=== PATIENT | female | born 1940 | race Caucasian/White ===

== ENCOUNTER 2016-04-10 10:45 | Day surgery (SDC) | payer OTHER, BC ==
[~2016-04-10 10:45] MED LIST: ceFAZolin 2 GM/DEXTROSE 100 ML IV ONE
[2016-04-10] MEDS ORDERED: LIDOCAINE 1% 5 ML SDV ONE (11:14)
[2016-04-10] MEDS ORDERED: CEFAZOLIN 2 GM/DEXTROSE/100 ML BAG IV ONE (11:14)
[2016-04-10] MEDS ORDERED: LR 1,000 ML IV ONE (11:21)
[2016-04-10] MEDS ORDERED: BACITRACIN 50,000 UNITS/10 ML SYR IRR ONE (11:33)
[2016-04-10] MEDS ORDERED: BUPIVACAINE 0.25% 30 ML SDV ONE (11:33)
[2016-04-10] MEDS ORDERED: BUPIVACAINE/EPI 0.25% 30 ML SDV ONE (11:33)
[2016-04-10] MEDS ORDERED: PROPOFOL/EMULSION 500 MG/50 ML BOTTLE IV ONE (11:43)
[2016-04-10] MEDS ORDERED: fentaNYL 100 MCG/2 ML INJ ONE (11:43)
[2016-04-10] MEDS ORDERED: MIDAZOLAM 2 MG/2 ML VIAL ONE (11:53)
--- NOTE | 2016-04-12 20:21 | GOP ---
[f rep st] OPERATIVE REPORT DATE OF OPERATION: 04/10/2016 SURGEON: Huey Rascon DPM DEPUTY CONTROLLER: None. ANESTHESIA: Local with MAC. ANESTHESIOLOGIST: Robin Shaw MD. PREOPERATIVE DIAGNOSIS: 1. Plantar plate tear, right 2nd digit. 2. Metatarsalgia, right 2nd. POSTOPERATIVE DIAGNOSIS: 1. Plantar plate tear, right 2nd digit. 2. Metatarsalgia, right 2nd. PROCEDURE PERFORMED: 1. 2nd metatarsal osteotomy, right. 2. Repair of plantar plate, right 2nd metatarsophalangeal joint. FINDINGS: ESTIMATED BLOOD LOSS: Minimal. DESCRIPTION OF PROCEDURE: The patient presented to [facility] and was cleared for the intended procedure. The patient was taken to the operating and placed on the table in the supine pos ition. IV sedation was started per the Anesthesia Department. The foot was anesthetized in an infil trative nerve block fashion. The foot was prepped, scrubbed, and draped in the usual sterile fashion . Following exsanguination by elevation and an Esmarch bandage, a pneumatic ankle tourniquet was inf lated to 225 mmHg. At this time, attention was directed to the dorsal aspect of the right 2nd metata rsophalangeal joint where a lazy-S incision was made starting proximal at the 2nd intermetatarsal spa ce, curving gently over the metatarsophalangeal joint and ending just proximal to the proximal interp halangeal joint of the 2nd digit. This incision was carried deep utilizing sharp and blunt dissectio n, making sure that all neurovascular structures were identified and retracted. At this time, all mcarthur perficial bleeders were cauterized. The incision was carried down deep to the level of the joint cap vamsi. At this time, a linear capsulotomy was performed. The capsular tissues were dissected free me dially and laterally to allow for adequate exposure to the metatarsal head and base of the proximal p halanx. At this time, utilizing a sagittal saw, an osteotomy was performed on the 2nd metatarsal sta rting dorsal distal just proximal to the cartilaginous cap and running in a proximal plantar position . Upon completion of this, the head was transposed proximally as far as possible and temporarily pin evelyn with K-wire fixation. Another K-wire was then put in the dorsal to plantar position in the base of the proximal phalanx. The retractor was placed over the 2 pins, and visualization of the ruptured plantar plate was identified. Complete rupture from the base of the proximal phalanx was identified with some linear tearing also involved. It was decided repair of the plantar plate would be necessa ry. At this point, the linear tear was sewn back together utilizing 3-0 Vicryl. The Mini Scorpion w as then utilized to tag both the dorsal medial and dorsal lateral aspects of the torn plantar plate. The base of the proximal phalanx was then roughed up to bleeding bone with a bone rasp, and the area was flushed with copious amounts of sterile saline. At this point, 2 drill holes were performed in the base of the proximal phalanx in an X fashion. The suture passers were placed through the drill h oles, and the sutures were then pulled to the dorsal aspect of the base of the proximal phalanx. Upo n completion of this, the K-wire fixation retractions were relieved and removed. The area was again flushed with copious amounts of sterile saline before the head was moved back slightly distal and hel d temporarily with K-wire fixation. C-arm fluoroscopy at this time showed that there was some shorte marco of the metatarsal head, still longer than the 3rd, and equal to the 1st, realigning a more maryjane l metatarsal parabola. At this point, the head of the metatarsal was fixated with Arthrex 2.0 snap-o ff screws; 11 and 13 mm screws were placed across the osteotomy, and good compression was obtained. The K-wire was again removed. Upon completion of this, the toe was put into a 10-degree plantar flex ed position, and the dorsal sutures were tied on the base of the proximal phalanx. They were cut michelle ropriately, and C-arm fluoroscopy showed an excellent alignment to the metatarsophalangeal joint. At this point, the area was again flushed with copious amounts of sterile saline before the dorsal caps ule was closed with 2-0 and 3-0 Vicryl, followed by subcutaneous closure with 5-0 Vicryl and skin ana paula sure with 5-0 nylon. The area was dressed with Betadine-soaked Adaptics, 4x4s, Julio C, and Coban. Th e patient was taken to recovery room. Vital signs stable. Vascular supply intact to digits 1 throug h 5 bilaterally after the pneumatic ankle tourniquet had been released for a total tourniquet time of 48 minutes. PATHOLOGY: None. HEMOSTASIS: PAT at 225 mmHg by 48 minutes. MATERIALS: Arthrex 2.0 snap-off screws by 11 and 13 mm. INJECTABLES: 20 cc, 9:1 ratio, of 0.25% Marcaine plain and 0.25% Marcaine with epi preoperatively. COMPLICATIONS: None. /[id number]/MODL
== END 2016-04-10 15:20 | disposition home or self-care (01) ==
LOC: FSGY 10:45
PROVIDERS: ATTEND Podiatrist Primary Podiatric Medicine
PROC: 0QSN04Z Reposition Right Metatarsal with Internal Fixation Device, Open Approach (ICD-10-PCS; principal; 2016-04-10 12:15)
PROC: 0LQV0ZZ Repair Right Foot Tendon, Open Approach (ICD-10-PCS; principal; 2016-04-10 12:15)
DX: M66.371 Spontaneous rupture of flexor tendons, right ankle and foot (principal); M77.41 Metatarsalgia, right foot; I10 Essential (primary) hypertension; J45.909 Unspecified asthma, uncomplicated; N18.9 Chronic kidney disease, unspecified
CPT/HCPCS: 28200; 28308; C1769; C1713; J0690; J2250; J2704; J3010

== ENCOUNTER 2016-05-06 20:06 | Emergency (ER) | payer OTHER, BC ==
--- NOTE | 2016-05-06 21:00 | EDPHY ---
H & P Stated Complaint: Left leg pain Source: Patient Exam Limitations: No limitations - Medical/Surgical History Hx Asthma: Yes Hx Chronic Respiratory Disease: No Hx Diabetes: No Hx Cardiac Disease: No Hx Renal Disease: No Hx Cirrhosis: No Hx Alcoholism: No Hx HIV/AIDS: No Hx Splenectomy or Spleen Trauma: No Other PMH: Asthma, R Hip replacement, HTN, - Social History Smoking Status: Never smoked Time Seen by Provider: 05/06/16 20:36 HPI/ROS: CHIEF COMPLAINT: left leg pain HISTORY OF PRESENT ILLNESS: 75-year-old female presents to the emergency department complaining of left posterior leg pain behind her knee and just above her knee. Patient had tarsal plate surgery on her right foot 20 days ago at this hospital. She has had no complications since surgery. Patient denies chest pain or shortness of breath. Patient reports she has had pain behind this knee for 8 or 9 months that is intermittent though today she went to step up on her neighbor's step and had a sharp pain behind this knee and felt like it was going to get out. She denies numbness or tingling in this leg, no swelling, no previous injury to this leg. REVIEW OF SYSTEMS: A comprehensive 10 point review of systems is otherwise negative aside from elements mentioned in the history of present illness. (Meryl Toney) - Physical Exam Exam: GEN: Awake, alert, oriented, no acute distress RESP: nl resp effort, lungs clear to auscultation, normal heart tones MSK: Left knee with full flexion and extension, no swelling, fullness in popliteal fossa, tenderness just proximal to this, no calf swelling or tenderness, no ankle tenderness or swelling, 2+ pedal pulses, sensation intact to light touch, no medial or lateral joint line tenderness SKIN: No break in skin (Meryl Toney) Constitutional: Initial Vital Signs Temperature (C) 36.7 C 05/06/16 21:02 Heart Rate 91 05/06/16 21:02 Respiratory Rate 16 05/06/16 21:02 Blood Pressure 102/64 05/06/16 21:02 O2 Sat (%) 95 05/06/16 21:02 O2 Delivery Mode Room Air Allergies/Adverse Reactions: ENVIRONMENTAL Allergy (Mild, Uncoded 05/06/16 21:00) Other-Enter Comments Home Medications: Medication Instructions Recorded Albuterol [Proventil Inhaler HFA 1 - 2 puffs IH Q4H PRN 09/19/13 (*)] Allopurinol [Allopurinol 300 MG 300 mg PO DAILY 09/19/13 (RX)] Calcium Carb W/Vit D [Calcium Carb 500 mg PO TIDMEAL 09/19/13 W/Vit D 500/200 (*)] Cholecalciferol Vit D3 [Vitamin D3 2,000 units PO DAILY 09/19/13 (*)] Fluticasone Hfa 110 Mcg [Flovent 1 puffs IH BID 09/19/13 110 MCG Hfa MDI (*)] Gabapentin [Neurontin 300 MG (*)] 1,200 mg PO HS 09/19/13 Herbals/Supplements -Info Only 1 ea PO DAILY 09/19/13 Losartan Potassium [Cozaar 50 mg 50 mg PO DAILY 09/19/13 (*)] Montelukast Sodium [Singulair 10 10 mg PO DAILY@1800 09/19/13 mg (*)] Sertraline HCl [Zoloft 50mg (*)] 50 mg PO HS 09/19/13 Spironolact/Hydrochlorothiazid 1 each PO DAILY 09/19/13 [Spironolactone-Hctz 25-25 Tab] Zolpidem Tartrate [Ambien 5MG (*)] 10 mg PO HS 09/19/13 amLODIPine BESYLATE [Norvasc 2.5 2.5 mg PO DAILY 09/19/13 mg (*)] lamoTRIgine [LamICTAL 100 MG (*)] 100 mg PO DAILY 09/19/13 Aspirin [Aspirin 325 mg (*)] 325 mg PO DAILY #21 tab 10/06/13 HYDROcodone/APAP 10/325 [Turlock 1 tab PO Q3 PRN #0 tab 10/07/13 10/325 (*)] Medical Decision Making - Diagnostics Imaging: LLE US- Findings: The common femoral, femoral, popliteal, greater saphenous and posterior tibial and peroneal veins of the calf normally compress on grayscale imaging. The deep venous system and superficial veins of the proximal calf have normal flow and expected variability. No Hickman's cyst. Impression: Negative. No deep venous thrombosis. Comment: Results called to Meryl Toney NP at 1032 p.m. May 06, 2016. Dictated By: Michael Lewis MD (Meryl Toney) ED Course/Re-evaluation: 75-year-old female presents with posterior left knee pain for several months that was significantly worse today after taking a step. Patient had a right foot surgery 3 weeks ago. No chest pain or shortness of breath. Ultrasound obtained to rule out a DVT, this was negative. Patient was placed in a knee brace and knee immobilizer, she has no evidence of a septic joint with no redness, swelling, fevers. She is to follow up with her orthopedist for further imaging and evaluation. She is given return precautions for worsening symptoms, other questions or concerns. (Meryl Toney) Differential Diagnosis: Diagnosis considered but not limited to DVT, Hickman's cyst, muscle strain, knee sprain, ligamentous injury, septic joint. (Meryl Toney) Other Provider: The patient wasevaluatedand managed by themidlevel provider. Idiscussed the patient's presentation and course with thephysicianassistantor nurse practitionerand agree with theevaluation. My co-signature indicates that I have reviewed this chart and I agree with the findings and plan of care as documented. I am the secondary supervisingphysician. (Franca Aguirre) Departure - Departure Disposition: Home, Routine, Self-Care Clinical Impression: Sprain of left knee Condition: Good Instructions: Knee Sprain (ED) Additional Instructions: Rest, ice, elevate, take 650 mg of Tylenol every 8 hours as needed for pain, wear Hank wrap and knee immobilizer for comfort. Follow up with Dr. Galvan at first available appointment. Return to the emergency department for worsening symptoms, pain that is not controlled, fevers, any other questions or concerns. Referrals: Leonard Galvan MD [Medical Doctor] - As per Instructions
--- NOTE | 2016-05-06 22:33 | US ---
Left Lower Extremity Deep Venous Duplex Ultrasound Indication: Posterior knee pain. Technique: The lower extremity deep venous system and veins of the proximal calf were interrogated wi th grayscale, color, and spectral Doppler imaging. Findings: The common femoral, femoral, popliteal, greater saphenous and posterior tibial and peroneal veins of the calf normally compress on grayscale imaging. The deep venous system and superficial vei ns of the proximal calf have normal flow and expected variability. No Hickman's cyst. Impression: Negative. No deep venous thrombosis. Comment: Results called to Meryl Toney NP at 1032 p.m. May 06, 2016.
[2016-05-06 23:29] VITALS: BP 110/78; PULSE 74; RESP 14; TEMP 98.4; O2SAT 96
== END 2016-05-06 23:29 | disposition home or self-care (01) ==
DX: S83.92XA Sprain of unspecified site of left knee, initial encounter (principal); J45.909 Unspecified asthma, uncomplicated; I10 Essential (primary) hypertension; Z79.82 Long term (current) use of aspirin; X58.XXXA Exposure to other specified factors, initial encounter; Y93.89 Activity, other specified

== ENCOUNTER → 2016-05-18 | Outpatient (CLI) | payer OTHER, BC ==
--- NOTE | 2016-05-18 15:40 | MR ---
MRI of the Left Knee Clinical Indications: Knee pain and swelling. Technique: Fat-suppressed, fast T2-weighted images were acquired axially, sagittally, and coronally. T1-weighted sagittal images were obtained. Findings Medial compartment: Complex tear involves the posterior horn of the medial meniscus. At the midaspect posterior horn, there is a near full thickness cleavage injury with associated small free edge flap. This injury extends into the posterior horn toward the posterior root ligament in a horizontal longi tudinal fashion. The posterior root ligament is intact. The tear also extends to the posteromedial co rner along the undersurface. The anterior horn and body of the medial meniscus are intact. Medial com partment articular cartilage is minimally thinned along the weightbearing aspect of the medial femora l condyle. Lateral compartment: Meniscus and articular cartilage are intact. Patellofemoral compartment: Diffuse grade 2 chondral loss throughout the medial and lateral patellar facets. Anterior and posterior cruciate ligaments are intact. Medial and lateral collateral ligaments are int act. Distal quadriceps and patellar tendons are intact. There is a large left knee joint effusion without Hickman's cyst. Impression: 1. Complex tear posterior horn medial meniscus, as above. 2. Associated knee joint effusion. 3. Underlying chondromalacia patella. 4. Intact ligaments.
== END ==
LOC: FIMAGING 13:16
PROVIDERS: ATTEND Orthopaedic Surgery
DX: S83.242A Other tear of medial meniscus, current injury, left knee, initial encounter (principal); M25.462 Effusion, left knee; M22.42 Chondromalacia patellae, left knee

== ENCOUNTER 2016-06-11 05:57 | Day surgery (SDC) | payer OTHER, BC ==
[2016-06-11] MEDS ORDERED: ACETAMINOPHEN 325 MG TAB PO ONE (06:00)
[2016-06-11] MEDS ORDERED: CEFAZOLIN 2 GM/DEXTR 100 ML IV ONE (06:00)
[2016-06-11] MEDS ORDERED: CHLORHEXIDINE GLUC HIBICLENS 118 ML BTL TP ONE (06:00)
[2016-06-11] MEDS ORDERED: DEXAMETHASONE 4 MG/ML VIAL IVP ONE (06:00)
[2016-06-11] MEDS ORDERED: FAMOTIDINE 20 MG TAB PO ONE (06:00)
[2016-06-11] MEDS ORDERED: LIDOCAINE 1% 2 ML INJ ONE (06:30)
[2016-06-11] MEDS ORDERED: BUPIVACAINE/EPI 0.5% 30 ML SDV ONE (06:37)
[2016-06-11] MEDS ORDERED: fentaNYL 100 MCG/2 ML INJ ONE ×2 (06:53→08:36)
[2016-06-11] MEDS ORDERED: PROPOFOL/EMULSION 500 MG/50 ML BOTTLE IV ONE (06:53)
[2016-06-11] MEDS ORDERED: SCOPOLAMINE HYDROBROMIDE 1.5 MG PATCH TD ONE ×2 (06:58→07:30)
[2016-06-11] MEDS ORDERED: MIDAZOLAM 2 MG/2 ML VIAL ONE (06:58)
[2016-06-11] MEDS ORDERED: ONDANSETRON 4 MG/2 ML VIAL ONE (07:39)
[2016-06-11] MEDS ORDERED: PHENYLEPHRINE HCL 100 MCG/ML SYR ONE (07:39)
--- NOTE | 2016-06-11 21:46 | GOP ---
[f rep st] OPERATIVE REPORT DATE OF OPERATION: 06/11/2016 SURGEON: Iglesia Galvan MD CLINIC BUSINESS MANAGER: None. ANESTHESIA: General. PREOPERATIVE DIAGNOSIS: Left knee medial meniscus tear. POSTOPERATIVE DIAGNOSIS: Left knee medial meniscus tear and lateral meniscus tear. PROCEDURE PERFORMED: Left arthroscopic partial medial and lateral meniscectomy. FINDINGS: INDICATIONS: The patient is a 76-year-old female who sustained an acute injury to her left knee, sustaining a left medial meniscus tear on MRI. Risks and benefits were discussed with the patient for nonoperative and operative intervention, and the decision was made to proceed with operative intervention. No guarantees were given. DESCRIPTION OF PROCEDURE: The patient was identified in the preoperative holding area and her left lower extremity was marked. She was then brought back to the operating room. After induction of anesthesia, a non-sterile tourniquet was placed on the left upper thigh. She was then prepped and draped in the usual sterile fashion. A time-out was taken confirming patient, laterality, procedure, allergies, and antibiotic status. We proceeded to elevate the extremity. The tourniquet was inflated to 250 mmHg. It was up for a total of 18 minutes. Medial and lateral parapatellar portals were made. Diagnostic arthroscopy was performed. There were no loose bodies in the patellar pouch, medial gutter or lateral gutter. There were grade 1 to 2 chondral changes on the patella. The trochlea appeared in good condition. The medial femoral condyle had some grade 2 to 3 changes on the medial femoral condyle. There was a broad tear of the meniscus at the posterior meniscal root as well as on the posterior medial periphery. These were debrided back to a stable rim with marcelo. The ACL was found to be intact. The lateral compartment was examined. There was some fraying and tears about the lateral meniscus. These were cleaned up with a shaver as well. After removal of any excess fluid, the incisions were closed with a suture. The patient was placed in a sterile dressing and brought to the PACU in good condition with her leg well perfused. Prior to making incision, local anesthetic was applied into the injection portal sites. /[id number]/MODL MTDD
== END 2016-06-11 09:50 | disposition home or self-care (01) ==
LOC: F3N 05:57 → UNDOADMIN 05:57 → FSGY 05:57 → EDSTATUS 12:15
PROVIDERS: ATTEND Orthopaedic Surgery
PROC: 0SBD4ZZ Excision of Left Knee Joint, Percutaneous Endoscopic Approach (ICD-10-PCS; principal; 2016-06-11 07:15)
DX: S83.242A Other tear of medial meniscus, current injury, left knee, initial encounter (principal); S83.282A Other tear of lateral meniscus, current injury, left knee, initial encounter; I10 Essential (primary) hypertension; M10.9 Gout, unspecified; J45.909 Unspecified asthma, uncomplicated; X58.XXXA Exposure to other specified factors, initial encounter; Y92.9 Unspecified place or not applicable
CPT/HCPCS: J0171; J0690; J1100; J2250; J2370; J2405; J2704; J3010

== ENCOUNTER → 2017-02-14 | Outpatient (CLI) | payer OTHER, BC | LOC: FIMAGING 08:35 | PROVIDERS: ATTEND Physical Medicine & Rehabilitation | DX: T84.84XA Pain due to internal orthopedic prosthetic devices, implants and grafts, initial encounter (principal); D25.9 Leiomyoma of uterus, unspecified ==

== ENCOUNTER → 2017-07-31 | Outpatient (CLI) | payer OTHER, BC | LOC: GIMAGING 14:53 | PROVIDERS: ATTEND Registered Nurse | DX: R05 Cough (principal); J45.909 Unspecified asthma, uncomplicated | CPT/HCPCS: 71046-PO ==

== ENCOUNTER → 2017-09-10 | Outpatient (CLI) | payer OTHER, BC | LOC: FIMAGING 18:29 | PROVIDERS: ATTEND Nurse Practitioner | DX: M46.96 Unspecified inflammatory spondylopathy, lumbar region (principal); M53.2X6 Spinal instabilities, lumbar region; M53.2X7 Spinal instabilities, lumbosacral region; Z96.641 Presence of right artificial hip joint ==

== ENCOUNTER 2017-10-25 13:21 | Emergency (ER) | payer OTHER, BC ==
[2017-10-25] MEDS ORDERED: NS 1,000 ML IV ONE (14:14)
--- NOTE | 2017-10-25 14:29 | EDPHY ---
H & P Stated Complaint: Dysuria; "I think I'm dehydrated"; seen here 2 days ago for abd c/o - Personal History Current Tetanus Diphtheria and Acellular Pertussis (TDAP): Yes - Medical/Surgical History Hx Asthma: Yes Hx Chronic Respiratory Disease: No Hx Diabetes: No Hx Cardiac Disease: No Hx Renal Disease: No Hx Cirrhosis: No Hx Alcoholism: No Hx HIV/AIDS: No Hx Splenectomy or Spleen Trauma: No Other PMH: Asthma, R Hip replacement, HTN, diverticulitis - Social History Smoking Status: Never smoked Time Seen by Provider: 10/25/17 14:07 HPI/ROS: CHIEF COMPLAINT: Dysuria, diarrhea HISTORY OF PRESENT ILLNESS: 77-year-old female presents with dysuria and diarrhea. Onset of nausea, vomiting and diarrhea 3 days ago. She was seen in this emergency department; CT scan of the abdomen pelvis showed fluid in the colon, consistent with enteritis, no evidence of diverticulitis. Since then, the vomiting has resolved. She continues to have nausea and multiple episodes of diarrhea daily. Onset of dysuria yesterday, associated with urinary incontinence and hematuria this morning. No abdominal pain today and no fever. REVIEW OF SYSTEMS: complete 10 point ROS negative except at noted in the HPI (Lupe Rodríguez) - Social History Additional Social History: (Lupe Rodríguez) - Physical Exam Exam: General Appearance: Alert, pleasant Eyes: Pupils equal and round, no conjunctival pallor or injection ENT, Mouth: Mucous membranes slightly dry Neck: Normal inspection Respiratory: Lungs are clear to auscultation Cardiovascular: Regular rate and rhythm Gastrointestinal: Abdomen is soft, diffuse mild tenderness Neurological: A&O, nonfocal, normal gait Skin: Warm and dry Extremities: Normal inspection Psychiatric: Mood and affect normal (Lupe Rodríguez) Constitutional: Initial Vital Signs Temperature (C) 36.6 C 10/25/17 13:24 Heart Rate 91 10/25/17 13:24 Respiratory Rate 18 10/25/17 13:24 Blood Pressure 139/74 H 10/25/17 13:24 O2 Sat (%) 96 10/25/17 13:24 O2 Delivery Mode Room Air Allergies/Adverse Reactions: ENVIRONMENTAL Allergy (Mild, Uncoded 10/23/17 14:30) Other-Enter Comments Home Medications: Medication Instructions Recorded Albuterol [Proventil Inhaler HFA 1 - 2 puffs IH Q4H PRN 09/19/13 (*)] Allopurinol [Allopurinol 300 MG 300 mg PO DAILY 05/27/16 (RX)] Gabapentin [Neurontin 300 MG (*)] 900 mg PO HS 05/27/16 Montelukast Sodium [Singulair 10 10 mg PO HS 05/27/16 mg (*)] Sertraline HCl [Zoloft 100mg (*)] 100 mg PO DAILY 05/27/16 Zolpidem Tartrate [Ambien 5MG (*)] 5 mg PO HS 05/27/16 amLODIPine BESYLATE [Norvasc 2.5 2.5 mg PO DAILY 05/27/16 mg (*)] lamoTRIgine [Lamictal] 200 mg PO DAILY 05/27/16 Acetaminophen [Tylenol 325mg (*)] 325 mg PO DAILY PRN 10/16/17 Fluticasone Hfa 110 Mcg [Flovent 1 puffs IH BID PRN 10/16/17 110 MCG Hfa MDI (*)] Multivitamins [Multivitamin (*)] 1 each PO DAILY 10/16/17 clonazePAM [Klonopin (*)] 0.5 mg PO DAILY PRN 10/16/17 Losartan-Hctz 100-12.5 mg Tab 10/23/17 Cephalexin [Keflex] 500 mg PO BID #14 cap 10/25/17 Ondansetron Odt [Zofran Odt 4 mg 4 mg PO Q4 PRN #10 tab 10/25/17 (RX)] Medical Decision Making ED Course/Re-evaluation: This patient presents with new onset of dysuria in the past 24 hr, likely urinary tract infection. Urinalysis sent. She also has vomiting and diarrhea, consistent with gastroenteritis. She will attempt to give us a stool sample. Abdominal exam is benign and there is no indication for imaging today. IV normal saline 1 L given for dehydration. (Lupe Rodríguez) Differential Diagnosis: Differential diagnosis includes though it is not limited to appendicitis, cholecystitis, diverticulitis, pyelonephritis, bowel perforation, small bowel obstruction. (Lupe Rodríguez) Other Provider: I assumed care of this patient from Dr. Rodríguez at 3:00 p.m.. At that time we were awaiting blood work and urinalysis. I reviewed her lab work. I have also reviewed the urinalysis, which is suggestive of urinary tract infection. Urine has been sent for culture. The patient remained in the emergency department, under my care, for 4 more hours. During that time she urinated 2 more times. She was given IV ceftriaxone 1 g for treatment of UTI. She received 2 L of IV fluid. She did not have any diarrheal stool. She has been taking loperamide at home. She was able to take p.o. She and her family are comfortable returning home. Her vital signs were normal at 6:30 p.m. When I recheck to them. She remained afebrile during her stay in the department. She does have a leukocytosis, not unexpected in the setting of a gastroenteritis and now urinary tract infection. No systemic toxicity. I have advised the patient and her that if she has return of diarrhea at home, fever, pain, any new or concerning symptoms--they should return to the emergency department and expect to be hospitalized. (Mackenzie Layton) - Data Points Laboratory Results: Laboratory Results 10/25/17 14:45 10/25/17 14:45 Microbiology Results: MICROBIOLOGY 10/25/17 14:50 Urine,Clean Catch Urine Culture - Preliminary Gram Neg Rods 2 Or More Types 10/26/17 17:55 Stool Gastrointestinal Tract Panel (PCR) - Final No Organism Detected Medications Given: Discontinued Medications Sodium Chloride (Ns) 1,000 mls @ 0 mls/hr IV EDNOW ONE; Wide Open PRN Reason: Protocol Stop: 10/25/17 14:15 Last Admin: 10/25/17 14:41 Dose: 1,000 mls Ceftriaxone Sodium/Dextrose (Rocephin 1 Gm (Premix)) 50 mls @ 100 mls/hr IV EDNOW ONE PRN Reason: Protocol Stop: 10/25/17 19:03 Last Admin: 10/25/17 18:47 Dose: 50 mls Ondansetron HCl (Zofran) 4 mg IVP EDNOW ONE Stop: 10/25/17 14:31 Last Admin: 10/25/17 14:45 Dose: 4 mg Point of Care Test Results: Urine Dip Collection Date 10/25/17 Collection Time 16:00 Specific Leland (1.002-1.030) 1.015 PH (5.0-7.5) 6.5 Leukocytes (Negative) 2+ Nitrites (Negative) Positive Protein (Negative) 1+ Glucose (Negative) Negative Ketones (Negative) Trace Bilirubin (Negative) Negative Blood (Negative) 1+ Departure - Departure Disposition: Home, Routine, Self-Care Clinical Impression: Urinary tract infection Qualifiers: Urinary tract infection type: acute cystitis Hematuria presence: without hematuria Qualified Code(s): N30.00 - Acute cystitis without hematuria Diarrhea Qualifiers: Diarrhea type: unspecified type Qualified Code(s): R19.7 - Diarrhea, unspecified Condition: Good Instructions: Ondansetron (By mouth), Urinary Tract Infection in Women (ED) Additional Instructions: You received intravenous antibiotics for your urine infection tonight. You do not need any additional antibiotics until tomorrow. I am providing prescription for Keflex that you should fill tomorrow morning. Your urine is being cultured, these results will not be available for a couple of days at least. If you have fever, pain, more diarrhea, vomiting, any new or concerning symptoms you should return to the emergency department. You would likely be hospitalized at that time. Referrals: Tiana Benítez MD [Primary Care Provider] - As per Instructions Prescriptions: Cephalexin [Keflex] 500 mg PO BID #14 cap Ondansetron Odt [Zofran Odt 4 mg (RX)] 4 mg PO Q4 PRN #10 tab PRN Reason: nausea
[2017-10-25] MEDS ORDERED: ONDANSETRON 4 MG/2 ML VIAL IVP ONE (14:30)
[2017-10-25 14:53] LABS: PLATELET COUNT 321 10^3/uL (150-400)
[2017-10-25 19:17] VITALS: BP 118/80
== END 2017-10-25 19:17 | disposition home or self-care (01) ==
DX: N30.00 Acute cystitis without hematuria (principal); B96.89 Other specified bacterial agents as the cause of diseases classified elsewhere; R19.7 Diarrhea, unspecified; I10 Essential (primary) hypertension; J45.909 Unspecified asthma, uncomplicated; E86.9 Volume depletion, unspecified
CPT/HCPCS: 96361; 96365; 96375; 99284; J0696; J2405

== ENCOUNTER 2017-11-04 09:04 | Inpatient (IN) | payer OTHER, BC ==
--- NOTE | 2017-11-04 07:08 | PDHPUP ---
History & Physical Update H&P update statement: This history and physical update is based on an assessment of the patient which was completed after admission or registration (within 24 hours), but prior to the surgery/procedure. H&P update: H&P reviewed & patient examined, no change in patient's condition since H&P completed
[~2017-11-04 09:04] MED LIST changes: +ROPIVACAINE 0.2% 80 MG, EPINEPHrine 0.2 MG, KETOROLAC TROMETHAMINE 30 MG in SYRINGE 0 ML IU ONE; +TRANEXAMIC ACID 3,000 MG in NS (SYRINGE) 50 ML IRR ONE; -ceFAZolin 2 GM/DEXTROSE 100 ML IV ONE
[2017-11-04] MEDS ORDERED: FAMOTIDINE 20 MG TAB PO ONE (09:32)
[2017-11-04] MEDS ORDERED: LIDOCAINE 1% 2 ML INJ ID PRN (09:32)
[2017-11-04] MEDS ORDERED: LR 1,000 ML IV ONE (09:32)
[2017-11-04] MEDS ORDERED: DEXAMETHASONE 4 MG/ML VIAL IVP ONE (09:32)
[2017-11-04] MEDS ORDERED: ceFAZolin 2 GM/DEXTROSE 100 ML IV ONE (09:32)
[2017-11-04] MEDS ORDERED: ACETAMINOPHEN 325 MG TAB PO ONE (09:32)
[2017-11-04] MEDS ORDERED: TRANEXAMIC ACID 3,000 MG/50 ML BAG IRR ONE (09:39)
--- NOTE | 2017-11-04 10:20 | PDANEPAE ---
ANE History of Present Illness OA here for MAT ANE Past Medical History - Cardiovascular History Hx Hypertension: Yes Hx Arrhythmias: No Hx Chest Pain: No Hx Coronary Artery / Peripheral Vascular Disease: No Hx CHF / Valvular Disease: No Hx Palpitations: No Cardiovascular History Comment: PRIMARY MANAGES HTN MEDS - Pulmonary History Hx COPD: No Hx Asthma/Reactive Airway Disease: Yes Hx Recent Upper Respiratory Infection: No Hx Oxygen in Use at Home: No Hx Sleep Apnea: Yes Sleep Apnea Screening Result - Last Documented: Positive Pulmonary History Comment: DANIA POSITIVE DOESN'T USE CPAP. ASTHMA - Neurologic History Hx Cerebrovascular Accident: No Hx Seizures: No Hx Dementia: No Neurologic History Comment: HX OF SPINAL FUSION. BENIGN FAMILIAL TREMOR- HAS NOT SEEN NEUROLOGIST FOR THIS - Endocrine History Hx Diabetes: No - Renal History Hx Renal Disorders: Yes Renal History Comment: MILD RENAL INSUFFICIENCY CONTROLLED CREATININE USUALLY AT 1.2- SEES DR FONTANA YEARLY TO MONITOR - Liver History Hx Hepatic Disorders: No - Neurological & Psychiatric Hx Hx Neurological and Psychiatric Disorders: Yes Neurological / Psychiatric History Comment: DEPRESSION SEES DR PETERSON- ON ZOLOFT AND LAMICTAL - Cancer History Hx Cancer: Yes Cancer History Comment: BASAL CELL SKIN - Congenital Disorder History Hx Congenital Disorders: No - GI History Hx Gastrointestinal Disorders: Yes Gastrointestinal History Comment: DIVERTICULITIS HX - Other Health History Other Health History: NONE - Chronic Pain History Chronic Pain: Yes (ARTHRITIS) - Surgical History Prior Surgeries: 04/10/16 RIGHT PLANTAR PLATE REPAIR WITH TORITO. CHANEL AT 5 YEARS OLD. TONSILLECTOMY AT 7 YEARS OLD. TUBAL LIGATION 35 YEARS AGO. BUNIONECTOMY RIGHT FOOT. CARPAL TUNNEL REPAIR ON LEFT HAND. 3 STAGE FUSION ON CERVICAL SPINE 3,4,5,6. TOTAL HIP R 2013 ANE Review of Systems Review of Systems: - Exercise capacity METS (RN): 4 METS ANE Patient History - Allergies Allergies/Adverse Reactions: ENVIRONMENTAL Allergy (Mild, Uncoded 10/23/17 14:30) Other-Enter Comments - Home Medications Home Medications: Albuterol [Proventil Inhaler HFA (*)] 1 - 2 puffs IH Q4H PRN 09/19/13 [Last Taken 11/04/17] Allopurinol [Allopurinol 300 MG (RX)] 300 mg PO DAILY 05/27/16 [Last Taken 2 Weeks Ago ~10/21/17] Gabapentin [Neurontin 300 MG (*)] 900 mg PO HS 05/27/16 [Last Taken 1 Day Ago ~ 11/03/17] Montelukast Sodium [Singulair 10 mg (*)] 10 mg PO HS 05/27/16 [Last Taken 1 Day Ago ~11/03/17] Sertraline HCl [Zoloft 100mg (*)] 100 mg PO DAILY 05/27/16 [Last Taken 11/04/17] Zolpidem Tartrate [Ambien 5MG (*)] 5 mg PO HS 05/27/16 [Last Taken 2 Days Ago ~ 11/02/17] amLODIPine BESYLATE [Norvasc 2.5 mg (*)] 2.5 mg PO DAILY 05/27/16 [Last Taken ] lamoTRIgine [Lamictal] 200 mg PO DAILY 05/27/16 [Last Taken 11/04/17] Acetaminophen [Tylenol 325mg (*)] 325 mg PO DAILY PRN 10/16/17 [Last Taken 1 Day Ago ~11/03/17] Fluticasone Hfa 110 Mcg [Flovent 110 MCG Hfa MDI (*)] 1 puffs IH BID PRN [Last Taken Unknown] Multivitamins [Multivitamin (*)] 1 each PO DAILY 10/16/17 [Last Taken 1 Day Ago ~11/03/17] clonazePAM [Klonopin (*)] 0.5 mg PO DAILY PRN 10/16/17 [Last Taken 1 Day Ago ~] Spironolact/Hydrochlorothiazid [Spironolactone-Hctz 25-25 Tab] 1 each PO DAILY 10/23/17 [Last Taken 1 Day Ago ~11/03/17] Losartan Potassium 11/04/17 [Last Taken 11/04/17] - NPO status NPO Since - Liquids (Date): 11/03/17 NPO Since - Liquids (Time): 17:00 NPO Since - Solids (Date): 11/03/17 NPO Since - Solids (Time): 21:00 - Anes Hx Anes Hx: post operative nausea and vomiting - Smoking Hx Smoking Status: Never smoked - Alcohol Use Alcohol Use: None - Family Anes Hx Family Anes Hx: none Family Hx Anesthesia Complications: NONE ANE Labs/Vital Signs - Vital Signs Blood Pressure: 141/93 Heart Rate: 78 Respiratory Rate: 18 O2 Sat (%): 95 Height: 160.02 cm Weight: 71.668 kg ANE Physical Exam - Airway Neck exam: decreased ROM, spinal fusion Mallampati Score: Class 2 Mouth exam: normal dental/mouth exam - Pulmonary Pulmonary: no respiratory distress, clear to auscultation - Cardiovascular Cardiovascular: regular rate and rhythym, no murmur, rub, or gallop - ASA Status ASA Status: III ANE Anesthesia Plan Anesthesia Plan: GA with mask, spinal
[2017-11-04] MEDS ORDERED: MIDAZOLAM 2 MG/2 ML VIAL IVP ONE (10:22)
[2017-11-04] MEDS ORDERED: PROPOFOL/EMULSION 500 MG/50 ML BOTTLE IV ONE (10:30)
[2017-11-04] MEDS ORDERED: ONDANSETRON 4 MG/2 ML VIAL IVP PRN ×2 (12:10→12:13)
[2017-11-04] MEDS ORDERED: PROMETHAZINE HCL 25 MG/ML INJ IVP PRN (12:10)
[2017-11-04] MEDS ORDERED: PROMETHAZINE HCL 25 MG SUPPR PR PRN (12:10)
[2017-11-04] MEDS ORDERED: METOCLOPRAMIDE 10 MG/2 ML VIAL IVP PRN (12:10)
[2017-11-04] MEDS ORDERED: POLYETHYLENE GLYCOL 3350 17 GM PKT PO PRN (12:10)
[2017-11-04] MEDS ORDERED: TEMAZEPAM 15 MG CAP PO PRN (12:10)
[2017-11-04] MEDS ORDERED: LACTULOSE 20 GM/30 ML UDCUP PO PRN (12:10)
[2017-11-04] MEDS ORDERED: diphenhydrAMINE 25 MG CAP PO PRN (12:10)
[2017-11-04] MEDS ORDERED: MAGNESIUM HYDROXIDE 30 ML UDCUP PO PRN (12:10)
[2017-11-04] MEDS ORDERED: DIPHENOXYLATE/ATROPINE LOMOTIL 1 TAB PO PRN (12:10)
[2017-11-04] MEDS ORDERED: BISACODYL 10 MG SUPP PR PRN (12:10)
[2017-11-04] MEDS ORDERED: ONDANSETRON DISINTEGRATING 4 MG TAB PO PRN (12:10)
--- NOTE | 2017-11-04 12:10 | POSTOPPROG ---
Post Op Note Date of Operation: 11/04/17 Surgeon: Leonard Mcghee Professor Of Environmental Science: katerin mcghee Anesthesiologist: dr. walden Anesthesia: Spinal Pre-op Diagnosis: left hip OA Post-op Diagnosis: same Indication: left hip pain Procedure: L MAT hardware in good position and well fixed Findings: severe hipOA Inf/Abcess present in the surg proc area at time of surgery?: No EBL: 100-500
[2017-11-04] MEDS ORDERED: fentaNYL 100 MCG/2 ML INJ IVP PRN (12:13)
[2017-11-04] MEDS ORDERED: oxyCODONE IR 5 MG TAB PO PRN (12:13)
[2017-11-04] MEDS ORDERED: NALOXONE HCL 0.4 MG/ML INJ IVP PRN (12:13)
--- NOTE | 2017-11-04 12:15 | POSTANESTH ---
Post Anesthetic Evaluation Cardiovascular Status: Normal, Stable, Similar to Pre-Op Cond Respiratory Status: Normal, Stable, Similar to Pre-op Cond. Level of Consciousness/Mental Status: Can Participate in Eval, Alert and Oriented Pain Control: Adequate, Prn Tx Ordered Nausea/Vomiting Control: Adequate, Prn Tx Ordered Complications Possibly Related to Anesthesia: None Noted
[2017-11-04] MEDS ORDERED: LR 1,000 ML IV SCH (12:30)
--- NOTE | 2017-11-04 13:54 | PDMN ---
Medical Necessity Medical necessity: [facility] IP only surgery; cpt 62237 L MAT
[2017-11-04] MEDS: oxyCODONE IR 5 MG TAB PO PRN ×2 (16:10→21:34)
[2017-11-04] MEDS: CYCLOBENZAPRINE 10 MG TAB PO PRN ×2 (16:11→23:51)
[2017-11-04] MEDS: ACETAMINOPHEN 325 MG TAB PO SCH ×2 (17:57→23:51)
[2017-11-04] MEDS: ceFAZolin 2 GM/DEXTROSE 100 ML IV SCH (17:59)
[2017-11-04] MEDS ORDERED: clonazePAM 0.5 MG TAB PO PRN (19:20)
[2017-11-04] MEDS ORDERED: CETIRIZINE 10 MG TAB PO PRN (19:25)
[2017-11-04] MEDS ORDERED: FLUTICASONE HFA 110 MCG MDI IH PRN (19:32)
[2017-11-04] MEDS ORDERED: ALBUTEROL 60 PUFFS/8 GM MDI IH PRN (19:45)
[2017-11-04] MEDS ORDERED: GABAPENTIN 300 MG CAP PO SCH (21:00)
[2017-11-04] MEDS ORDERED: MONTELUKAST SODIUM 10 MG TAB PO SCH (21:00)
[2017-11-04] MEDS ORDERED: SERTRALINE HCL 100 MG TAB PO SCH (21:00)
[2017-11-04] MEDS ORDERED: ZOLPIDEM TARTRATE 5 MG TAB PO SCH (21:00)
[2017-11-04] MEDS: ASPIRIN 81 MG CHEWABLE TAB PO SCH (21:34)
[2017-11-04] MEDS: SENNOSIDES/DOCUSATE SODIUM TAB PO SCH (21:35)
[2017-11-04] MEDS: FAMOTIDINE 20 MG TAB PO SCH (21:36)
[2017-11-05] MEDS: ceFAZolin 2 GM/DEXTROSE 100 ML IV SCH (01:37)
[2017-11-05] MEDS: ACETAMINOPHEN 325 MG TAB PO SCH (05:59)
[2017-11-05] MEDS: oxyCODONE IR 5 MG TAB PO PRN ×2 (06:15→09:26)
[2017-11-05] MEDS: ASPIRIN 81 MG CHEWABLE TAB PO SCH (08:43)
[2017-11-05] MEDS: SENNOSIDES/DOCUSATE SODIUM TAB PO SCH (08:43)
[2017-11-05] MEDS: FAMOTIDINE 20 MG TAB PO SCH (08:44)
[2017-11-05 08:45] VITALS: BP 139/77
[2017-11-05] MEDS ORDERED: HYDROCHLOROTHIAZIDE 25 MG TAB PO SCH (09:00)
[2017-11-05] MEDS ORDERED: lamoTRIgine 100 MG TAB PO SCH (09:00)
[2017-11-05] MEDS ORDERED: SPIRONOLACTONE 25 MG TAB PO SCH (09:00)
[2017-11-05] MEDS ORDERED: LOSARTAN POTASSIUM 50 MG TAB PO SCH (09:00)
[2017-11-05] MEDS: CYCLOBENZAPRINE 10 MG TAB PO PRN (09:24)
--- NOTE | 2017-11-10 15:41 | GOP ---
[f rep st] OPERATIVE REPORT DATE OF OPERATION: 11/04/2017 SURGEON: Iglesia Galvan MD GUIDE EXCURSION: Shawnee Galvan PA-C. ANESTHESIA: Spinal. PREOPERATIVE DIAGNOSIS: Left hip osteoarthritis. POSTOPERATIVE DIAGNOSIS: Left hip osteoarthritis. PROCEDURE PERFORMED: Total hip arthroplasty with x-ray. FINDINGS: ESTIMATED BLOOD LOSS: 200 mL. INDICATIONS: The patient has progressively worsening arthritis of the hip which has failed medical m anagement. The patient understands the treatment options including continued non-operative care and has selected surgical intervention. The patient has decided to undergo total hip arthroplasty via th e direct anterior approach, understanding the risks of the procedure including, but not limited to, n eurovascular injury, infection, persistent pain, component wear and loosening, deep venous thrombosis , pulmonary embolism, limb length inequality, hip instability (including dislocation), and intra-oper ative fractures. DESCRIPTION OF PROCEDURE: After proper identification of the patient including verification and mary carmen ing the surgical site, the patient was brought to the operating room and placed in the supine positio n. All bony prominences were well padded. Anesthesia was induced without complication and intraveno us prophylactic antibiotics were administered prior to skin incision. The operative leg was placed in the Trumpf Arch table extension and the well leg in a Yellofin leg ho lder. The patient was prepped and draped in the usual sterile fashion. The C-arm was draped for int ra-operative fluoroscopy to check acetabular position, femoral component position including leg lengt h and femoral offset. Attention was then drawn to surgical exposure of the hip. An incision was made with a #10 Bard Tillman r blade starting 3 cm lateral and 3 cm distal to the anterior superior iliac spine measuring 8-10 cm and coursing distally toward the greater trochanter. The skin and subcutaneous tissues were divided sharply down to the fascia anabella. The fascia anabella was incised in line with the skin incision exposing the underlying tensor fascia anabella muscle. The muscle was bluntly elevated from the fascia and the f irst extracapsular Cobra retractor was placed laterally at the junction of the superior femoral neck and greater trochanter. The lateral femoral circumflex vessels were identified, cauterized, and divi ded with the Aquamantys bipolar cautery. The deep investing fascia of the TFL was divided to allow p tito mobilization of the muscle preventing damage during the retraction. The reflected head of the rectus femoris muscle was elevated off the anterior hip capsule and a medial Cobra retractor was plac ed just proximal to the lesser trochanter. The anterior capsulotomy was made sharply from the superolateral acetabulum to the saddle junction of the superior femoral neck and greater trochanter, then coursing inferomedial towards the lesser troc hanter. The retractors were then placed in the intracapsular position for femoral neck osteotomy. C orresponding to pre-operative templating, the osteotomy was made with the oscillating saw carefully p rotecting the greater trochanter and soft tissues. The femoral head was removed from the acetabulum with a corkscrew and confirmed to be severely arthritic with exposed bone, deformity and osteophytes. Similar findings were confirmed in the acetabulum. The Arch table extension was then placed in 40 degrees external rotation. Attention was then drawn to the acetabular preparation. After placement of the anterior and posterio r Cobra retractors outside the labrum and intracapsular, the circumferential labrum was removed sharp ly. The foveal contents were then removed and hemostasis obtained with cautery. The first reamer selected was sized using the removed femoral head. Reaming began with medialization and then commenced in 2 mm increments at 45 degrees of abduction and 15 degrees of anteversion using fluoroscopic navigation. Reaming ceased 1 mm less than the definitive acetabular component and luz maria esponded to the pre-operative templating. The final acetabular component was inserted using fluorosc opy to achieve proper orientation yielding excellent purchase and stability in the acetabulum. The f inal acetabular liner was then placed and its seating confirmed. Attention was then turned to the femur. The Arch table extension was placed in extension and adducti on, delivering the osteotomized femoral neck into the wound. A 2-pronged femoral elevator was placed at the calcar and another at the tip of the greater trochanter. The posterolateral capsule was rele ased with cautery allowing mobilization of the femur lateral and anterior for preparation. The exter nal rotators were visualized and preserved. A curette and rongeur were used to open the starting poi nt for broaching. Serial broaching started with the #0 broach and ended with the broach that exhibit ed excellent fit in the proximal femur. A change in pitch during mallet strikes was accompanied by t he inability to advance the broach any further. The trial reduction was performed and fluoroscopic n avigation was utilized to check limb length. Adjustments were made to equalize limb length according ly. After the final trials were accepted they were removed and the wound was copiously lavaged. The femo ral component was seated to the same depth as the final broach and the femoral head was impacted onto the clean trunnion. The hip was then reduced for the final time and once more fluoroscopy was used to check that limb length equality was achieved. The wound was irrigated and closed in layers, the fascia anabella with 2-0 Quill, the subcutaneous tissue with 2-0 Quill, and the skin with Dermabond. Sterile dressings were applied. Final sharps and spon ge counts were accurate. The patient was then transferred to a hospital bed and brought to the [facility] room in stable condition. IMPLANTS: Accolade II size 3 at 127 acetabular component with a Trident II, 48 mm. Head is a Biolox Delta 32 mm, +0. Liner is a Trident X3, 32 mm. /[id number]/MODL
--- NOTE | 2017-11-13 10:31 | GDS ---
[f rep st] DISCHARGE SUMMARY ADMISSION DIAGNOSIS: Left hip osteoarthritis. DISCHARGE DIAGNOSIS: Left hip osteoarthritis. PROCEDURE: Left total hip arthroplasty. VTE PROPHYLAXIS: Recommended aspirin. BRIEF DESCRIPTION OF HOSPITAL STAY: Patient was admitted for an elective joint arthroplasty. The pa se tolerated the procedure well and has passed physical therapy. The patient was given appropriat e antibiotic prophylaxis and venous thromboembolism prophylaxis. The patient's pain was well control led on oral pain medication, patient was holding down food, and had urinated. Decision was made to d ischarge the patient. The patient was given post-operative prescriptions pre-operatively. PLAN: To follow up with Dr. Galvan at [facility] in 2 to 3 weeks. /[id number]/MODL
== END 2017-11-05 10:50 | disposition home or self-care (01) | DRG 470 ==
LOC: F3N 09:04
PROVIDERS: ADMIT Orthopaedic Surgery; ATTEND Orthopaedic Surgery
PROC: 0SRB04Z Replacement of Left Hip Joint with Ceramic on Polyethylene Synthetic Substitute, Open Approach (ICD-10-PCS; principal; 2017-11-04 11:00)
DX: M16.12 Unilateral primary osteoarthritis, left hip (principal); J45.909 Unspecified asthma, uncomplicated; F32.9 Major depressive disorder, single episode, unspecified; E78.00 Pure hypercholesterolemia, unspecified; M10.9 Gout, unspecified; I10 Essential (primary) hypertension; G47.33 Obstructive sleep apnea (adult) (pediatric)
CPT/HCPCS: 97161-GP; 97165-GO; G8978-GP-CI; G8979-GP-CI; G8980-GP-CI; G8987-GO-CI; G8988-GO-CI; G8989-GO-CI; J0171; J0690; J1100; J1885; J2250; J2704; J2795

== ENCOUNTER 2018-01-28 10:58 | Emergency (ER) | payer OTHER, BC ==
--- NOTE | 2018-01-28 11:24 | EDPHY ---
General Time Seen by Provider: 01/28/18 11:15 Narrative: CHIEF COMPLAINT: Fall, head injury HISTORY OF PRESENT ILLNESS: Patient presents by private vehicle with complaints of fall and head injury. She reports walking her dog just prior to arrival when the dog "yanked me forward onto the ground." She reports striking her forehead, right hand and her right knee on the asphalt. She does not think she lost consciousness. She does have a mild right-sided headache. She has some mild right-sided neck pain. She has no chest or abdominal pain. No complaints of pain left arm or leg. She has superficial abrasion to the right hand and right knee that are minimally tender. She is able to ambulate. She has had no vomiting or visual disturbance. She does have right-sided neck pain is [id number]. No numbness to made no weakness. She has chronic back pain that is unchanged. No incontinence of bowel or bladder. No other associated complaints or modifying factors. Spouse at bedside REVIEW OF SYSTEMS: 10 systems were reviewed and negative with the exception of the elements mentioned in the history of present illness. PCP: Dr. Akilah Benítez SPECIALISTS: Ortho, Dr. Galvan Spine, Dr. Barba PAST MEDICAL HISTORY: Chronic back pain, cervical degeneration, asthma, osteoarthritis, hypertension, diverticulitis, sleep apnea, dyslipidemia, basal cell carcinoma, osteopenia ANTICOAGULATED: None. PAST SURGICAL HISTORY: Right hip arthroplasty last 2 months SOCIAL HISTORY: Nonsmoker. Lives independently with her spouse. FAMILY HISTORY: Noncontributory EXAMINATION: General Appearance: Alert, no distress Head: normocephalic, no depression or Jacob sign. No raccoon eyes. Right eyebrow laceration that is partial thickness. Eyes: Pupils equal and round, no conjunctival pallor or injection. Right eyebrow laceration measuring 4 cm with partial thickness involvement of the subcutaneous tissue. There is no injury to the levator palpebrae as per your wrist or frontalis muscle or galea. No injury to the right eyelid or canthus. No foreign body. EOMs are symmetric without nystagmus or dysconjugate gaze. ENT, Mouth: Mucous membranes moist. Airway widely patent Neck: Normal inspection, supple, no midline tenderness, crepitus or deformity. Right sided paraspinous muscular tenderness. Respiratory: Lungs are clear to auscultation Cardiovascular: Regular rate and rhythm. No murmur. Good signs of perfusion distally. Gastrointestinal: Abdomen is soft and nontender Back: non-tender, no bony abnormalities Neurological: GCS 15. A&O, nonfocal, normal gait. Strength is symmetric in all 4 limbs. Light sensory symmetric upper lower extremities. Normal finger-to -nose. No pronator drift. Skin: Warm and dry, no rash. Complex right eyebrow laceration as above. Superficial abrasion to the palm right hand of the right knee. Extremities: Nontender, no pedal edema. Range of motion upper and lower extremities symmetric Psychiatric: Mood and affect normal DIFFERENTIAL DIAGNOSES: Including but not limited to concussion, skull fracture, orbital fracture, complex laceration, intracranial hemorrhage, contusion, hematoma, abrasions MDM: 11:15 a.m. Mechanical fall this morning while walking her dog with closed head injury with complex right eyebrow laceration. No injury to the galea, fascia or levator palpebrae superioris appreciated. She does have moderate headache and some neck pain, thus I have ordered imaging of the head and neck. She has no neuro complaints. No chest abdominal or extremity complaints. She has chronic back pain is at baseline. She is not vomiting. Tdap is up-to-date. I have anesthetize the wound. 12:00 p.m. Laceration has been copiously irrigated, re-examine with sterile glove and close. No foreign body. Postop bleeding. Eyebrows with symmetrically pre and postprocedure. CT scans pending. 12:12 p.m. Notified by radiologist Dr. Chau. There is a nondisplaced fracture of the right inferior orbital wall. No entrapment. This does clinically correlate with the patient as she has some ecchymosis in this area with no diplopia with her EOMs. I discussed this with the patient. She will need outpatient follow- up but no emergent consultation at this time. We discussed ice to the affected area. We discussed elevating the head of bed 20-45. We discussed wound care of the laceration. We discuss returning here in 7 days for suture removal. We discussed ED precautions for headache, neck pain or stiffness, visual disturbance or double vision. I have answered all her questions. She is discharged home stable condition. PROCEDURE: Laceration repair Consent: Verbal Location: Right eyebrow Length of repair: 4 cm Complexity: Complex Layer involvement: 2 layer Anesthesia: Local. 0.5% Marcaine without epinephrine, 10 mL Irrigation: Extensive Debridement: 1 cm excisional debridement Procedure description: Following good anesthesia, the wound was copiously irrigated. Wound bed was explored with a sterile glove, and there is no foreign body noted. Perform 1 cm excisional debridement on nonviable skin. Wound borders were approximated well with good hemostasis. Tolerated well without complication. Suture/Staple material: Subcutaneous layer: 5-0 Vicryl, 8 figure-eight sutures. Cutaneous layer: 5-0 Prolene, 6 running sutures. Wound care: Routine as discussed Suture/Staple removal: Days SUPERVISION: This patient was independently evaluated without direct involvement of or examination by the attending physician. CONSULTATION: None. - Diagnostics Imaging Results: Imaging Impressions Cervical Spine CT 01/28/18 11:24 Impression: 1. Periorbital edema with possible nondisplaced fracture of the right infraorbital wall. 2. No acute intracranial hemorrhage. No cervical spine fracture or subluxation. Findings and recommendations discussed with Honorio Castellano at 1210 hour, . Head CT 01/28/18 11:24 Impression: 1. Periorbital edema with possible nondisplaced fracture of the right infraorbital wall. 2. No acute intracranial hemorrhage. No cervical spine fracture or subluxation. Findings and recommendations discussed with Honorio Castellano at 1210 hour, . Imaging: Discussed imaging studies w/ callisthenics instructor Radiologist, I viewed and interpreted images myself - History History Review: I reviewed the patient's medical records, I obtained additional history from the patient's family Smoking Status: Never smoked - Objective Vital Signs: Initial Vital Signs Temperature (C) 97.3 F 01/28/18 11:01 Heart Rate 94 01/28/18 11:01 Respiratory Rate 17 01/28/18 11:01 Blood Pressure 128/74 H 01/28/18 11:01 O2 Sat (%) 96 01/28/18 11:01 O2 Delivery Mode Room Air Allergies/Adverse Reactions: ENVIRONMENTAL Allergy (Mild, Uncoded 01/28/18 10:59) Other-Enter Comments Home Medications: Medication Instructions Recorded Albuterol [Proventil Inhaler HFA 1 - 2 puffs IH Q4H PRN 09/19/13 (*)] Gabapentin [Neurontin 300 MG (*)] 900 mg PO HS 05/27/16 Montelukast Sodium [Singulair 10 10 mg PO HS 05/27/16 mg (*)] Sertraline HCl [Zoloft 100mg (*)] 100 mg PO HS 05/27/16 Zolpidem Tartrate [Ambien 5MG (*)] 5 mg PO HS 05/27/16 amLODIPine BESYLATE [Norvasc 2.5 2.5 mg PO DAILY 05/27/16 mg (*)] lamoTRIgine [Lamictal] 200 mg PO DAILY 05/27/16 Fluticasone Hfa 110 Mcg [Flovent 1 puffs IH BID PRN 10/16/17 110 MCG Hfa MDI (*)] Multivitamins [Multivitamin (*)] 1 each PO DAILY 10/16/17 clonazePAM [Klonopin (*)] 0.5 mg PO DAILY PRN 10/16/17 Spironolact/Hydrochlorothiazid 1 each PO DAILY 10/23/17 [Spironolactone-Hctz 25-25 Tab] Loratadine 10 mg PO DAILY PRN 11/04/17 Losartan Potassium [Cozaar 50 mg 50 mg PO DAILY 11/04/17 (*)] Acetaminophen [Tylenol 325mg (*)] 650 mg PO Q6HRS tab 11/05/17 Aspirin [Aspirin 81mg (*)] 81 mg PO BID tab.chew 11/05/17 Cyclobenzaprine [Flexeril 10 MG 10 mg PO Q8HRS PRN tab 11/05/17 (*)] Polyethylene Glycol 3350 [Miralax 17 gm PO DAILY PRN pkt 11/05/17 17 gm (*)] Sennosides/Docusate Sodium 1 - 2 tab PO BID tab 11/05/17 [Senokot-S] celeCOXIB [Celebrex (*)] 200 mg PO DAILY cap 11/05/17 oxyCODONE IR [Oxycodone Ir (*)] 5 - 10 mg PO Q3HRS PRN tab 11/05/17 Departure - Departure Disposition: Home, Routine, Self-Care Clinical Impression: Abrasion Fracture of inferior orbital wall Qualifiers: Encounter type: initial encounter Fracture type: closed Laterality: right Qualified Code(s): S02.31XA - Fracture of orbital floor, right side, initial encounter for closed fracture Head injury Qualifiers: Encounter type: initial encounter Qualified Code(s): S09.90XA - Unspecified injury of head, initial encounter Eyebrow laceration Qualifiers: Encounter type: initial encounter Laterality: right Qualified Code(s): S01.111A - Laceration without foreign body of right eyelid and periocular area, initial encounter Condition: Good Instructions: Care For Your Stitches (ED), Laceration (ED), Facial Fracture (ED ) Additional Instructions: 1. Ice the affected area of the face and forehead 2. Keep the wound covered with a Band-Aid while showering for the next 3 days 3. Daily wound care as discussed with thin layer bacitracin daily. 4. Return here for suture removal in 7 days 5. Return here for signs of infection as discussed including warmth, redness, fever, drainage from the site 6. return here for increasing pain surrounding the laceration 7. Do not submerge the wound in any water, hot tub, swimming pool until sutures removed 8. Elevate your head of bed while sleeping 9. Contact Ear Nose and Throat physician Dr. Navarro for outpatient follow-up of the inferior orbital wall fracture Referrals: Tiana Benítez MD [Primary Care Provider] - As per Instructions Allen Navarro MD [Medical Doctor] - As per Instructions Carlos Steven MD [Medical Doctor] - As per Instructions
[2018-01-28 12:20] VITALS: BP 105/59
== END 2018-01-28 12:43 | disposition home or self-care (01) ==
PROC: 0JQ13ZZ Repair Face Subcutaneous Tissue and Fascia, Percutaneous Approach (ICD-10-PCS; principal; 2018-01-28)
DX: S01.111A Laceration without foreign body of right eyelid and periocular area, initial encounter (principal); S02.81XA Fracture of other specified skull and facial bones, right side, initial encounter for closed fracture; W17.89XA Other fall from one level to another, initial encounter; Y93.K1 Activity, walking an animal

== ENCOUNTER 2018-03-10 10:16 | Inpatient (IN) | payer OTHER, BC ==
[2018-03-04 13:15] LABS: PLATELET COUNT 324 10^3/uL (150-400)
--- NOTE | 2018-03-04 17:19 | CPEKG ---
Test Reason : PREOP Blood Pressure : / mmHG Vent. Rate : 090 BPM Atrial Rate : 090 BPM P-R Int : 170 ms QRS Dur : 085 ms QT Int : 367 ms P-R-T Axes : 067 -06 053 degrees QTc Int : 449 ms Sinus rhythm Consider possible Inferior infarct, old Confirmed by Allen Melchor ([id number]) on 03/04/2018 5:18:58 PM Referred By: Confirmed By:Allen Melchor
--- NOTE | 2018-03-10 08:26 | PDANEPAE ---
ANE History of Present Illness back pain ANE Past Medical History - Cardiovascular History Hx Hypertension: Yes Hx Arrhythmias: No Hx Chest Pain: No Hx Coronary Artery / Peripheral Vascular Disease: No Hx CHF / Valvular Disease: No Hx Palpitations: No Cardiovascular History Comment: PRIMARY MANAGES HTN MEDS - Pulmonary History Hx COPD: No Hx Asthma/Reactive Airway Disease: Yes Hx Recent Upper Respiratory Infection: No Hx Oxygen in Use at Home: No Hx Sleep Apnea: Yes Sleep Apnea Screening Result - Last Documented: Positive Pulmonary History Comment: DANIA POSITIVE - does not have Cpap. ASTHMA - Neurologic History Hx Cerebrovascular Accident: No Hx Seizures: No Hx Dementia: No Neurologic History Comment: BENIGN FAMILIAL ESSENTIAL TREMOR. Low back pain radiating into right leg - Endocrine History Hx Diabetes: No Hypothyroid: No Hyperthyroid: No Obesity: no - Renal History Hx Renal Disorders: Yes Renal History Comment: MILD RENAL INSUFFICIENCY - SEES DR FONTANA TO MONITOR - Liver History Hx Hepatic Disorders: No - Neurological & Psychiatric Hx Hx Neurological and Psychiatric Disorders: Yes Neurological / Psychiatric History Comment: depression - Cancer History Hx Cancer: Yes Cancer History Comment: BASAL CELL SKIN - Congenital Disorder History Hx Congenital Disorders: No - GI History GERD: no Hx Gastrointestinal Disorders: Yes Gastrointestinal History Comment: DIVERTICULITIS HX - Other Health History Other Health History: wears glasses. osteoarthritis - Chronic Pain History Chronic Pain: Yes (back pain down right leg) - Surgical History Prior Surgeries: APPENDECTOMY. TONSILLECTOMY. TUBAL LIGATION. ACDF 3,4,5,6 - 2009. TOTAL HIP R 2013. Left MAT in 11/2017. BUNIONECTOMY RIGHT FOOT. Rt Plantar REPAIR WITH DIAMANTEK, 04/2016. Bloom's Neuroma repair, right. Right hand trigger finger repair and carpel tunnel repair. CARPAL TUNNEL REPAIR ON LEFT HAND ANE Review of Systems Review of systems is: negative Review of Systems: - Exercise capacity METS (RN): 3 METS ANE Patient History - Allergies Allergies/Adverse Reactions: No Known Allergies Allergy (Verified 03/01/18 12:03) - Home Medications Home medications: home medication list seen and reviewed Home Medications: Gabapentin [Neurontin 300 MG (*)] 300 mg PO QID 05/27/16 [Last Taken 11/03/17] Montelukast Sodium [Singulair 10 mg (*)] 10 mg PO HS 05/27/16 [Last Taken ] Zolpidem Tartrate [Ambien 5MG (*)] 5 mg PO HS 05/27/16 [Last Taken 11/03/17] amLODIPine BESYLATE [Norvasc 2.5 mg (*)] 2.5 mg PO DAILY 05/27/16 [Last Taken ] Fluticasone Hfa 110 Mcg [Flovent 110 MCG Hfa MDI (*)] 1 puffs IH BID PRN [Last Taken 2 Weeks Ago ~10/21/17] clonazePAM [Klonopin (*)] 0.5 mg PO HS PRN 10/16/17 [Last Taken 11/03/17] Spironolact/Hydrochlorothiazid [Spironolactone-Hctz 25-25 Tab] 1 each PO DAILY 10/23/17 [Last Taken 11/03/17] Losartan Potassium [Cozaar 50 mg (*)] 50 mg PO DAILY 11/04/17 [Last Taken ] Albuterol [Proventil Inhaler HFA (*)] 1 - 2 puffs IH Q4H PRN 02/26/18 [Last Taken Unknown] Allopurinol [Allopurinol 300 MG (RX)] 300 mg PO DAILY 02/26/18 [Last Taken Unknown] Calcium Carb W/Vit D [Calcium Carb W/Vit D 500/200 (*)] 1,000 mg PO DAILY [Last Taken Unknown] Sertraline HCl [Zoloft 50mg (*)] 50 mg PO DAILY 02/26/18 [Last Taken Unknown] lamoTRIgine [LamICTAL 100 MG (*)] 100 mg PO DAILY 02/26/18 [Last Taken Unknown] Acetaminophen 03/01/18 [Last Taken Unknown] Vicodin 5-300 mg Tablet PRN 03/01/18 [Last Taken Unknown] - NPO status NPO Status: no food or drink >8 hours - Anes Hx Anes Hx: no prior problems - Smoking Hx Smoking Status: Never smoked - Alcohol Use Alcohol Use: None - Family Anes Hx Family Anes Hx: none Family Hx Anesthesia Complications: none ANE Labs/Vital Signs - Labs Result Diagrams: 03/04/18 12:41 03/04/18 12:41 - Vital Signs Height: 161.29 cm Weight: 69.4 kg ANE Physical Exam - Airway Neck exam: FROM Mallampati Score: Class 2 Mouth exam: normal dental/mouth exam - Pulmonary Pulmonary: no respiratory distress, clear to auscultation - Cardiovascular Cardiovascular: regular rate and rhythym, no murmur, rub, or gallop - ASA Status ASA Status: III ANE Anesthesia Plan Anesthesia Plan: general endotracheal anesthesia (neuro monitoring)
[2018-03-10] MEDS ORDERED: GABAPENTIN 300 MG CAP PO ONE (10:47)
[2018-03-10] MEDS ORDERED: ceFAZolin 2 GM/DEXTROSE 100 ML IV ONE (10:47)
[2018-03-10] MEDS ORDERED: ACETAMINOPHEN 500 MG TAB PO ONE (10:47)
[2018-03-10] MEDS ORDERED: LR 1,000 ML IV ONE (10:48)
[2018-03-10] MEDS ORDERED: THROMBIN (BOVINE) 20,000 UNIT VIAL TP ONE (10:58)
[2018-03-10] MEDS ORDERED: BACITRACIN 50,000 UNITS/10 ML SYR IRR ONE (10:58)
[2018-03-10] MEDS ORDERED: BUPIVACAINE/EPI 0.25% 30 ML SDV ONE (10:58)
[2018-03-10] MEDS ORDERED: CHLORHEXIDINE GLUC HIBICLENS 118 ML BTL TP ONE (10:58)
[2018-03-10] MEDS ORDERED: MIDAZOLAM 2 MG/2 ML VIAL IVP ONE (11:26)
[2018-03-10] MEDS ORDERED: PROPOFOL 200 MG/20 ML VIAL ONE (11:38)
[2018-03-10] MEDS ORDERED: fentaNYL 250 MCG/5 ML INJ ONE (11:38)
[2018-03-10] MEDS ORDERED: LIDOCAINE 2% 5 ML SDV ONE (11:39)
[2018-03-10] MEDS ORDERED: SUCCINYLCHOLINE CHLORIDE 200 MG/10 ML SYR IVP ONE (11:39)
[2018-03-10] MEDS ORDERED: POLYETHYLENE GLYCOL 3350 17 GM PKT PO PRN (12:23)
[2018-03-10] MEDS ORDERED: ONDANSETRON DISINTEGRATING 4 MG TAB PO PRN (12:23)
[2018-03-10] MEDS ORDERED: MAGNESIUM HYDROXIDE 30 ML UDCUP PO PRN (12:23)
[2018-03-10] MEDS ORDERED: diphenhydrAMINE 25 MG CAP PO PRN (12:23)
[2018-03-10] MEDS ORDERED: BISACODYL 10 MG SUPP PR PRN (12:23)
[2018-03-10] MEDS ORDERED: LACTULOSE 20 GM/30 ML UDCUP PO PRN (12:23)
[2018-03-10] MEDS ORDERED: ONDANSETRON 4 MG/2 ML VIAL IVP PRN (12:23)
[2018-03-10] MEDS ORDERED: FLUTICASONE HFA 110 MCG MDI IH PRN (12:26)
[2018-03-10] MEDS ORDERED: ALBUTEROL 60 PUFFS/8 GM MDI IH PRN (12:26)
[2018-03-10] MEDS ORDERED: clonazePAM 0.5 MG TAB PO PRN (12:26)
[2018-03-10] MEDS ORDERED: NS 1,000 ML IV SCH (12:30)
--- NOTE | 2018-03-10 12:34 | PDMN ---
Medical Necessity Medical necessity: Pt meets IP criteria as of 03/10/2018 per and [facility] ( Lumbar fusion); Medicare IP only procedure.
[2018-03-10] MEDS ORDERED: fentaNYL 100 MCG/2 ML INJ IVP PRN (15:04)
[2018-03-10] MEDS ORDERED: MEPERIDINE 25 MG/0.5 ML AMP IVP PRN (15:04)
[2018-03-10] MEDS ORDERED: NALOXONE HCL 0.4 MG/ML INJ IVP PRN (15:04)
[2018-03-10] MEDS ORDERED: PROMETHAZINE HCL 25 MG/ML INJ IVP PRN (15:04)
--- NOTE | 2018-03-10 15:05 | POSTANESTH ---
Post Anesthetic Evaluation Cardiovascular Status: Normal, Stable Respiratory Status: Normal, Stable Level of Consciousness/Mental Status: Moderately Sleepy Pain Control: Adequate, Prn Tx Ordered Nausea/Vomiting Control: Adequate, Prn Tx Ordered Complications Possibly Related to Anesthesia: None Noted
[2018-03-10] MEDS ORDERED: ceFAZolin 1 GM VIAL ONE (15:57)
[2018-03-10] MEDS ORDERED: ONDANSETRON 4 MG/2 ML VIAL ONE (15:57)
--- NOTE | 2018-03-10 16:39 | POSTOPPROG ---
Post Op Note Date of Operation: 03/10/18 Surgeon: Case Barba Tooth Cutter Clutch: Tita Romero NP Anesthesiologist: Katie Anesthesia: GET(General Endotracheal) Pre-op Diagnosis: Lumbar stenosis Procedure: L3-4, L4-5 TLIF Inf/Abcess present in the surg proc area at time of surgery?: No Depth: Deep Incisional (Fascial) EBL: 100-500 Total fluids administered: see anesthesia Complications: none Drains: [place] Date of Surgery: 03/10/18 Post Op Day: 0 Assessment/Plan: Assessment: 77 yr old F s/p L3-4, L4-5 TLIF for lower back pain and right groin pain Plan: -Admit med surg -PT/OT -Post op xrays in am -Pain management -ANJUM to bulb suction Call with questions/concerns Subjective: waking up in PACU Objective: waking up in PACU AJ x4 5/5 BLE Dressing CDI ANJUM patent Appropriate Neuro Check Frequency Ordered: Yes
[2018-03-10] MEDS ORDERED: HYDROmorphONE/DILAUDID 2 MG/ML INJ ONE (16:43)
[2018-03-10] MEDS ORDERED: fentaNYL 100 MCG/2 ML INJ ONE (16:43)
[2018-03-10] MEDS: HYDROmorphONE/DILAUDID 2 MG/ML INJ IVP PRN ×2 (16:47→17:07)
[2018-03-10] MEDS: GABAPENTIN 300 MG CAP PO SCH ×2 (16:57→21:19)
--- NOTE | 2018-03-10 17:50 | GOP ---
DATE OF OPERATION: 03/10/2018 SURGEON: Jarrod Barba MD NEUROSURGEON: Jarrod Barba MD. [employer]ER [employer]ISHING WORKER: Tita Romero, nurse practitioner PREOPERATIVE DIAGNOSIS: Right lumbosacral radiculopathy, severe axial low back pain, lumbar spondylo sis, right foraminal stenosis L3-4, L4-5, severe facet arthropathy at L3-4, L4-5. POSTOPERATIVE DIAGNOSIS: Right lumbosacral radiculopathy, severe axial low back pain, lumbar spondyl osis, right foraminal stenosis L3-4, L4-5, severe facet arthropathy at L3-4, L4-5. PROCEDURE PERFORMED: Posterior-lateral intervertebral arthrodesis at L3-4, L4-5 (87955, [id number]), post erior segmental instrumentation (40700), placement of biomechanical intervertebral device L3-4, L4-5 (55424 x2), spinal stereotactic, microscope, same incision bone graft harvest. FINDINGS: Consistent with diagnosis and are found in the body of the report. ESTIMATED BLOOD LOSS: 250 cc INDICATIONS: The patient is a mature woman who is having terrible bilateral axial low back pain with radiating pain on the right side above the iliac crest over to the right groin. She failed conserva tive measures. Her MRI demonstrated facet arthropathy at L3-4, L4-5. She had mild spondylolisthesis of about 4 mm at each of those levels and she had right foraminal stenosis at L3-4 and L4-5. There was not very significant compression on the left. Her facet joints in my view were incompetent and w ould lead to progressive spondylolisthesis based on their appearance, but she also had right foramina l stenosis, and one of the principal areas of compression was at L3-4 where the superior articulating process of L3 was pinching the exiting L3 nerve root against the L3-4 disk. I suggested a complete facetectomy and a fusion of those levels. The risk of adjacent segment disease and additional spine surgery was discussed. She knew these were possibilities. She knew there was a chance of continued symptoms, nerve injury, spinal fluid leak, and infection. She knew there was risk of hardware malfun ction, misplacement, as well as the risk of pseudoarthrosis, and the possible need for revision surge ry. She wanted to proceed despite those risks. DESCRIPTION OF PROCEDURE: The patient was taken to the operating room. She was placed in the supine position. General anesthesia was begun. She was flipped prone onto the Hill table. Care was ta anne to pad all points of contact. Her back was sterilely prepped and draped in the usual fashion. A localizing x-ray was taken. We made a midline incision. It was about 7 cm in length above the L3-4, L4-5 interspace. The subcut aneous tissue was dissecting using Bovie cautery down to the fascia. Subperiosteal dissection was ma de down the inferior lamina of L2. The complete lamina of L3, 4, and 5 was exposed. Interestingly, she had bilateral facet arthropathy at L3-4, L4-5, and her facet joints really just looked completely terrible. They looked like they were moth eaten and the bone was spongy and spondylotic. She also had exuberant synovium coming out of both the L3-4 and the L4-5 facet joint on the right-hand side in a dorsal exophytic fashion. We removed this. We shot a localizing x-ray. We denuded the hypertrophic facets at L3-4, L4-5, and decorticated the t ransverse process at L3-4, L4-5. We attached the Stealth reference frame and using frameless Stealth stereotaxy and an O-arm spin, we placed pedicle screws bilaterally at L3, 4, 5. They all self stimu lated acceptable level. We placed a 60 mm vincenzo down on the right side and we used a 55 mm vincenzo on the left, and we distracted on the right-hand side alone, reducing the degenerative scoliosis at L3-4, L4 -5 on the right-hand side. We got a nice elevation and it appeared to be perfect in its alignment. We final tightened the cap screws. We placed a vincenzo on the left-hand side where we did not distract. We final tightened the cap screws according to company specification there. We then removed all the soft tissue of the bone at L3-4, L4-5, and then harvested the L4 spinous process and the inferior L3 spinous process for autologous grafting purposes. We drilled right hemilaminectomy at the L3-4, L4- 5 and harvested this bone for autologous grafting purposes. The operating microscope was introduced. We opened the ligamentum flavum and decompressed the right side at L3-4, L4-5, and got great decompression. We completely removed the right L3-4, L4-5 facet iam int. There was foraminal stenosis at those levels and we removed the superior articular process, bot h of L5 and of L4, to decompress the exiting root. It was the superior articular process of L4 that was compressing the exiting L3 root and the superior articular process of L5 that was compressing the L4 root. We got a great decompression. Interestingly, the exiting L3 root at the L3-4 level was vi sibly deformed by the compressive bone. One could appreciate the dilatation in the root just beyond the compression. There was no violation, however, of the nerve sheath whatsoever, is simply an inten tion in the nerve itself where the compression had been occurring. As we decompressed the foramen, we found exuberant synovium at each level protruding into the neural foramen on top of the exiting root. This too was contributing to the compression of the exiting nerv e roots at those levels. We removed all this on top of the nerve and got a great decompression of valarie th the L3-4 and L4-5 level. We then swept the traversing L5 nerve root medially at the 4, 5 level an d under the microscope removed the disk and the cartilaginous endplates at L4-5. We then did likewis e at L3-4 where we took the traversing L4 root medially and from the right side, removed the L3-4 dis k and the cartilaginous endplates. We decorticated the subchondral bone to create arthrodesis at tho se levels. There was really not much room in the axilla of the L3 root at the L3-[address] e expandable cage, and at this level, I elected to use the 25 mm x [address] [place] PEEK device. We siz ed both spaces, 1 for expandable device at L4-5 and the non-expandable device at L3-4. We placed bon e autograft and BMP into the disk spaces. We then followed this with a 7 mm device at 3, 4 and 7 mm expandable device at L4-5. It was inserted and expanded, and this was done under fluoroscopic guidan ce. I was happy with the position of the devices. There had been BMP placed in the disk space and bone autograft had been placed in the disk space vent ral to the devices. We then decorticated all the remaining posterolateral bone bilaterally, got a gr eat amount of bone decorticated on each side. Placed bone morphogenic protein and BMP into the poste rior lateral gutters on each side. We then placed a subfascial drain, and then closed the incision i n multiple layers using Vicryl sutures. A running PDS was placed in the skin, itself. Steri-Strips were applied. The patient was reversed from anesthesia, extubated, and transferred to recovery room in stable condition. There were no complications. COMPLICATIONS: None. HARDWARE USED: [employer] Discovery Solera 5.5 mm system. We used a 7 x [address] [place] PEEK cage at L3-4 and w e used a 7 x 28 mm expandable cage at L4-5. /[id number]/MODL
[2018-03-10] MEDS: ACETAMINOPHEN 500 MG TAB PO SCH ×2 (18:06→21:18)
[2018-03-10] MEDS: ceFAZolin 2 GM/DEXTROSE 100 ML IV SCH (18:14)
[2018-03-10] MEDS: oxyCODONE IR 5 MG TAB PO PRN ×3 (18:14→23:56)
[2018-03-10] MEDS: MONTELUKAST SODIUM 10 MG TAB PO SCH (21:19)
[2018-03-10] MEDS: FAMOTIDINE 20 MG TAB PO SCH (21:19)
[2018-03-10] MEDS: SENNOSIDES/DOCUSATE SODIUM TAB PO SCH (21:19)
[2018-03-11] MEDS: ceFAZolin 2 GM/DEXTROSE 100 ML IV SCH (02:07)
[2018-03-11] MEDS: GABAPENTIN 300 MG CAP PO SCH ×4 (05:09→21:57)
[2018-03-11] MEDS: ACETAMINOPHEN 500 MG TAB PO SCH ×3 (05:09→21:58)
[2018-03-11 06:01] LABS: PLATELET COUNT 247 10^3/uL (150-400)
[2018-03-11] MEDS: oxyCODONE IR 5 MG TAB PO PRN ×4 (07:26→23:55)
--- NOTE | 2018-03-11 08:16 | NEUSURGPN ---
Date of Surgery: 03/10/18 Post Op Day: 1 Assessment/Plan: Assessment: 77 yr old F s/p L3-4, L4-5 TLIF for lower back pain and right groin pain POD#1 Plan: -PT/OT -Post op xrays pending for today -Pain management -ANJUM to bulb suction, remove later this afternoon -Patient seen by Dr Barba as well Call with questions/concerns Subjective: Expected incisional pain Objective: AxO x3 AJ x4 5/5 BLE Sensation intact to light touch BLE Dressing CDI, incision CDI with steri strips in place ANJUM patent Neuro Check Frequency: per routine Urinary Catheter in Place: No Catheter Insertion Date: 03/10/18 - Physician Discussed Patient with .: Jameson Patient Seen by : Jameson Neurosurgery Physical Exam - Vitals, I&O, Labs I and O 03/10/18 03/11/18 03/12/18 05:59 05:59 05:59 Intake Total 2660 Output Total 1915 Balance 745 Weight 69.4 kg Intake: Oral (ml) 910 IV Intake (ml) 1750 Output: Urine (ml) 1600 Catheter 1600 Estimated Blood Loss (ml) 150 ANJUM Drain Output (ml) 165 [place] 165 Other: Number of Voids Catheter 1 Vital Signs Temp Pulse Resp BP Pulse Ox 36.8 C 89 17 108/59 L 95 03/11/18 04:00 03/11/18 04:00 03/11/18 04:00 03/11/18 04:00 03/11/18 04:00 Laboratory Results 03/11/18 05:15 03/11/18 05:15 ICD10 Worksheet Patient Problems: Problems Problem Status Onset Osteoarthritis of hip Acute Primary localized osteoarthritis of left hip Acute
[2018-03-11] MEDS: FAMOTIDINE 20 MG TAB PO SCH ×2 (09:25→21:59)
[2018-03-11] MEDS: ALLOPURINOL 300 MG TAB PO SCH (09:25)
[2018-03-11] MEDS: lamoTRIgine 100 MG TAB PO SCH (09:25)
[2018-03-11] MEDS: SENNOSIDES/DOCUSATE SODIUM TAB PO SCH ×2 (09:25→21:57)
[2018-03-11] MEDS: SERTRALINE HCL 50 MG TAB PO SCH (09:26)
[2018-03-11] MEDS: HYDROCHLOROTHIAZIDE 25 MG TAB PO SCH (10:01)
[2018-03-11] MEDS: LOSARTAN POTASSIUM 50 MG TAB PO SCH (10:01)
[2018-03-11] MEDS: SPIRONOLACTONE 25 MG TAB PO SCH (10:02)
--- NOTE | 2018-03-11 10:35 | ASMTCMCOM ---
CM Note CM Note Notes: Pts case discussed w/ BETTY Lynne. Pt is a 77 y/o female admitted for a lumbar stenosis. Pts drain will most likely be pulled today. PT is recommending HC. Pt has been prearranged w/ [facility]. Nadine w/ [facility] stopped by and visited w/ pt. Pt is agreeable to HC services. CM to follow. Plan: [facility]; PT Date Signed: 03/11/2018 10:34 AM Electronically Signed By:SHIRIN Garcia
[2018-03-11] MEDS: METHOCARBAMOL 750 MG TAB PO PRN ×2 (11:48→21:58)
[2018-03-11] MEDS: MONTELUKAST SODIUM 10 MG TAB PO SCH (21:58)
[2018-03-12] MEDS: ACETAMINOPHEN 500 MG TAB PO SCH ×3 (06:07→22:33)
[2018-03-12] MEDS: GABAPENTIN 300 MG CAP PO SCH ×4 (06:08→21:28)
[2018-03-12] MEDS: oxyCODONE IR 5 MG TAB PO PRN ×4 (06:08→21:28)
[2018-03-12] MEDS: METHOCARBAMOL 750 MG TAB PO PRN ×2 (08:55→21:28)
[2018-03-12] MEDS: lamoTRIgine 100 MG TAB PO SCH (08:55)
[2018-03-12] MEDS: HYDROCHLOROTHIAZIDE 25 MG TAB PO SCH (08:56)
[2018-03-12] MEDS: ALLOPURINOL 300 MG TAB PO SCH (08:56)
[2018-03-12] MEDS: FAMOTIDINE 20 MG TAB PO SCH ×2 (08:56→21:28)
[2018-03-12] MEDS: SERTRALINE HCL 50 MG TAB PO SCH (08:56)
[2018-03-12] MEDS: SENNOSIDES/DOCUSATE SODIUM TAB PO SCH ×2 (08:57→21:28)
[2018-03-12] MEDS: LOSARTAN POTASSIUM 50 MG TAB PO SCH (08:57)
[2018-03-12] MEDS: SPIRONOLACTONE 25 MG TAB PO SCH (08:58)
--- NOTE | 2018-03-12 09:01 | NEUSURGPN ---
Date of Surgery: 03/10/18 Post Op Day: 2 Assessment/Plan: 77 yr old F s/p L3-4, L4-5 TLIF for lower back pain and right groin pain POD#2 Plan: -PT/OT -Post op xrays- hardware in good placement -Pain management -ANJUM removed on 03/12 -Possibly home later today if continues to progress well, if not then tomorrow with home health care -Call with questions/concerns Discussed with Dr. Barba. Subjective: Having localized back pain, worse with rolling in bed. Objective: Awake. Alert. PERRL. EOMI Facial expression symmetrical Muscle strength full at 5/5 Sensation intact Catheter Insertion Date: 03/10/18 - Physician Discussed Patient with .: Jameson Neurosurgery Physical Exam - Vitals, I&O, Labs I and O 03/11/18 03/12/18 03/13/18 05:59 05:59 05:59 Intake Total 2660 1150 Output Total 1915 820 200 Balance 745 330 -200 Weight 69.4 kg Intake: Oral (ml) 910 1150 IV Intake (ml) 1750 Output: Urine (ml) 1600 800 200 Catheter 1600 Toilet 800 200 Estimated Blood Loss (ml) 150 ANJUM Drain Output (ml) 165 20 [place] 165 20 Other: Intake Quantity Yes Sufficient Number of Voids Catheter 1 Toilet 1 1 Vital Signs Temp Pulse Resp BP Pulse Ox 36.8 C 82 16 102/50 L 94 03/12/18 07:54 03/12/18 07:54 03/12/18 07:54 03/12/18 08:57 03/12/18 07:54 Laboratory Results 03/11/18 05:15 03/11/18 05:15 ICD10 Worksheet Patient Problems: Problems Problem Status Onset Osteoarthritis of hip Acute Primary localized osteoarthritis of left hip Acute
[2018-03-12] MEDS: MONTELUKAST SODIUM 10 MG TAB PO SCH (21:28)
[2018-03-13] MEDS: oxyCODONE IR 5 MG TAB PO PRN (06:07)
[2018-03-13] MEDS: METHOCARBAMOL 750 MG TAB PO PRN ×2 (06:07→12:05)
[2018-03-13] MEDS: GABAPENTIN 300 MG CAP PO SCH ×2 (06:07→12:05)
[2018-03-13] MEDS: ACETAMINOPHEN 500 MG TAB PO SCH (06:08)
[2018-03-13 08:10] VITALS: BP 101/54
[2018-03-13] MEDS ORDERED: ENOXAPARIN 40 MG/0.4 ML SYR SC SCH (09:00)
[2018-03-13] MEDS: ALLOPURINOL 300 MG TAB PO SCH (09:12)
[2018-03-13] MEDS: SERTRALINE HCL 50 MG TAB PO SCH (09:12)
[2018-03-13] MEDS: FAMOTIDINE 20 MG TAB PO SCH (09:12)
[2018-03-13] MEDS: lamoTRIgine 100 MG TAB PO SCH (09:12)
[2018-03-13] MEDS: SENNOSIDES/DOCUSATE SODIUM TAB PO SCH (09:13)
--- NOTE | 2018-03-13 09:31 | SOAPPROG ---
SOAP Progress Note Assessment/Plan: Assessment: 77 yr old F s/p L3-4, L4-5 TLIF for lower back pain and right groin pain POD#3 Doing well, eager to go home Plan: -DC home with home health care -Call with questions/concerns. Subjective: Out of bed, just came out of bathroom. Using walker. doing well. Has some right thigh pain like a "cramp." Objective: Incision: CDI, new dressing placed Awake. Alert. PERRL. EOMI ambulatory Muscle strength full at 5/5 Sensation intact Objective: Vital Signs Temp Pulse Resp BP Pulse Ox 36.8 C 85 14 101/54 L 94 03/13/18 08:00 03/13/18 08:00 03/13/18 08:00 03/13/18 08:00 03/13/18 08:00 Laboratory Results 03/11/18 05:15 03/11/18 05:15 03/12/18 03/13/18 03/14/18 05:59 05:59 05:59 Intake Total 1150 1000 Output Total 820 800 Balance 330 200 ICD10 Worksheet Patient Problems: Problems Problem Status Onset Osteoarthritis of hip Acute Primary localized osteoarthritis of left hip Acute
--- NOTE | 2018-03-13 09:46 | PDIAF ---
- Diagnosis Diagnosis: LUmbar DJD/stenosis L3-5 fusion Code Status: Full Code - Medication Management Discharge Medications: electronically signed and located in the Home Medication List. - Orders Services needed: Home Care, Physical Therapy, Occupational Therapy Home Care Face to Face: I certify that this patient was under my care and that I had the required [id number] encounter meeting the encounter requirements on the discharge day. My findings support the fact that the patient is homebound as defined in Home Care Face to Face Continued: CMS Chapter 7 Medicare Benefits Manual 30.1.1 , The condition of the patient is such that there exists a normal inability to leave home and consequently, leaving home would require a considerable and taxing effort. Isolation Type: None Diet Recommendation: no restrictions on diet Diet Texture: Regular Texture Diet Elia Stockings Discontinue Date: 03/18 Wound Care Instructions: Check incision daily. call with any drainage, redness or pain Activity/Weight Bearing Restrictions: no bending, twisting or lifting over 10 lbs x 6 weeks. Additional Instructions: No bending, lifting or twisting. Wear LSO when OOB Call [phone] to confirm post op appt and with questions/concerns Follow up with Dr. Barba in 10-14 days - Follow Up Care Current Providers and Referrals: Tiana Benítez MD [Primary Care Provider] -
--- NOTE | 2018-03-13 09:47 | ASMTLACE ---
DEBOE Length of stay for Answers: 3 days current admission Acuity / Level of Answers: Yes Care: Did the patient have an inpatient admission? Comorbidities - select Answers: Mild liver or renal all that apply disease Opioid dependence / Chronic pain Other Notes: HTN: Hx of diverticulitis; Basal cell cancer # of Emergency department Answers: 3-4 visits in the last 6 months Social determinants Answers: Mental health diagnosis (anxiety, depression, pers onality disorders, etc.) Score: 19 Date Signed: 03/13/2018 09:46 AM Electronically Signed By:Pushpa Sexton
--- NOTE | 2018-03-13 09:53 | ASMTDCNOTE ---
Case Management Discharge Discharge Order Complete? Answers: Yes Patient to Obtain Answers: via Family Medications Transportation Arranged Answers: Family/Friends Faxed Final Orders Answers: No Agency/Facility Transfer Answers: No Report Printed & Faxed to Receiving Agency Family Notified Answers: Yes Discharge Comments Notes: [facility] notified that pt is discharging today. Orders not sent due to [facility] having access to them through medical office. Date Signed: 03/13/2018 09:52 AM Electronically Signed By:Pushpa Sexton
[2018-03-13] MEDS: LOSARTAN POTASSIUM 50 MG TAB PO SCH (10:47)
[2018-03-13] MEDS: HYDROCHLOROTHIAZIDE 25 MG TAB PO SCH (10:47)
[2018-03-13] MEDS: SPIRONOLACTONE 25 MG TAB PO SCH (10:48)
== END 2018-03-13 12:45 | disposition home health service (06) | DRG 455 ==
LOC: F3E 10:16 → F3N 17:27
PROVIDERS: ADMIT Neurological Surgery; ATTEND Neurological Surgery
DX: M54.17 Radiculopathy, lumbosacral region (principal); M47.896 Other spondylosis, lumbar region; I10 Essential (primary) hypertension; G47.33 Obstructive sleep apnea (adult) (pediatric)
CPT/HCPCS: 97116-GP; 97161-GP; 97166-GO; 97530-GP; 97535-GO; C1713; G8978-GP-CI; G8978-GP-CK; G8979-GP-CI; G8980-GP-CI; G8987-GO-CM; G8988-GO-CJ; J0330; J0690; J1170; J1650; J2250; J2405; J2704; J3010

== ENCOUNTER 2018-03-14 22:09 | Inpatient (IN) | payer OTHER, BC ==
[2018-03-14] MEDS ORDERED: HYDROmorphONE/DILAUDID 1 MG/ML INJ IVP ONE (22:41)
[2018-03-14 22:46] LABS: PLATELET COUNT 353 10^3/uL (150-400)
--- NOTE | 2018-03-14 22:46 | EDPHY ---
H & P Stated Complaint: Back spams after lumbar spine fusion Time Seen by Provider: 03/14/18 22:24 HPI/ROS: Chief Complaint: Back pain status post spinal surgery HPI: A 77-year-old woman who is 4 days postop of a L3-4 and L4-[address] Barba. Patient was discharged yesterday. Since discharge she has been having episodes of severe right leg pain any time she moves. Is a 10/10. Is described as a sharp nerve like pain going down the entire length of her right leg. She has been taking her oxycodone, Robaxin, Tylenol and gabapentin with no relief. At rash she has about a 3/10 right ankle pain. With any movement she has 10/10 right leg pain. No calf pain or swelling. No numbness or weakness. She is ambulating with a walker and significant discomfort. No fevers or chills. No incontinence of urine. She spoke with the on-call PA for neurosurgery increased her oxycodone up to 15 mg with no relief. ROS: 10 systems were reviewed and were negative except those elements noted in the HPI. PMH: Asthma, hypertension, spinal stenosis and degenerative disc disease Social History: No smoking, no alcohol, no recreational drug use Family History: non-contributory Physical Exam: Gen: Awake, Alert, No Distress HEENT: Nose: no rhinorrhea Eyes: PERRLA, EOMI Mouth: Moist mucosa Neck: Supple, no JVD Chest: nontender, lungs clear to auscultation Heart: S1, S2 normal, no murmur Abd: Soft, non-tender, no guarding Back: no CVA tenderness, no midline tenderness incision is clean, dry and intact , no erythema or discharge Ext: no edema, non-tender Skin: no rash Neuro: CN II-XII intact, Sensation grossly intact, Strength 5/5 in bilateral upper and lower extremities, 2+ deep tendon reflexes. Normal plantar and dorsiflexion. Sensations intact in all dermatomes - Personal History Current Tetanus/Diphtheria Vaccine: Yes Current Tetanus Diphtheria and Acellular Pertussis (TDAP): Yes Tetanus Vaccine Date: 2017 - Medical/Surgical History Hx Asthma: Yes Hx Chronic Respiratory Disease: No Hx Diabetes: No Hx Cardiac Disease: No Hx Renal Disease: No Hx Cirrhosis: No Hx Alcoholism: No Hx HIV/AIDS: No Hx Splenectomy or Spleen Trauma: No Other PMH: Asthma, R Hip replacement, HTN, diverticulitis, DANIA, cervical fusion , increased cholesterol, basal cell CA, osterpenia - Social History Smoking Status: Never smoked Constitutional: Initial Vital Signs Temperature (C) 36.7 C 03/14/18 22:09 Heart Rate 90 03/14/18 22:09 Respiratory Rate 16 03/14/18 22:09 Blood Pressure 157/101 H 03/14/18 22:09 O2 Sat (%) 96 03/14/18 22:09 O2 Delivery Mode Room Air Allergies/Adverse Reactions: No Known Allergies Allergy (Verified 03/01/18 12:03) Home Medications: Medication Instructions Recorded Gabapentin [Neurontin 300 MG (*)] 300 mg PO QID 05/27/16 Montelukast Sodium [Singulair 10 10 mg PO HS 05/27/16 mg (*)] amLODIPine BESYLATE [Norvasc 2.5 2.5 mg PO DAILY 05/27/16 mg (*)] Fluticasone Hfa 110 Mcg [Flovent 1 puffs IH BID PRN 10/16/17 110 MCG Hfa MDI (*)] clonazePAM [Klonopin (*)] 0.5 mg PO HS PRN 10/16/17 Spironolact/Hydrochlorothiazid 1 each PO DAILY 10/23/17 [Spironolactone-Hctz 25-25 Tab] Losartan Potassium [Cozaar 50 mg 50 mg PO DAILY 11/04/17 (*)] Albuterol [Proventil Inhaler HFA 1 - 2 puffs IH Q4H PRN 02/26/18 (*)] Allopurinol [Allopurinol 300 MG 300 mg PO DAILY 02/26/18 (RX)] Calcium Carb W/Vit D [Calcium Carb 1,000 mg PO DAILY 02/26/18 W/Vit D 500/200 (*)] Sertraline HCl [Zoloft 50mg (*)] 50 mg PO DAILY 02/26/18 lamoTRIgine [LamICTAL 100 MG (*)] 100 mg PO DAILY 02/26/18 Acetaminophen [Tylenol 325mg (*)] 325 mg PO DAILY PRN 03/01/18 Methocarbamol [Robaxin 750 mg (*)] 750 mg PO QID #60 tab 12/08/18 Polyethylene Glycol 3350 [Miralax 17 gm PO DAILY PRN pkt 03/13/18 17 gm (*)] Sennosides/Docusate Sodium 1 - 2 tab PO BID tab 03/13/18 [Senokot-S] Spironolactone [Aldactone 25 MG 25 mg PO DAILY tab 03/13/18 (*)] oxyCODONE IR [Oxycodone Ir (*)] 5 - 10 mg PO Q4HRS PRN #60 tab 03/13/18 Medical Decision Making ED Course/Re-evaluation: I have discussed with Nestor Griffith, neurosurgery PA. He is requesting the patient be admitted to the hospitalist service for pain management. Case discussed with Dr. Patel, hospitalist. She will admit to her service for further care. - Data Points Laboratory Results: Laboratory Results 03/14/18 22:15 03/14/18 22:15 03/14/18 03/14/18 22:15 22:15 WBC 8.85 10^3/uL 10^3/uL (3.80-9.50) RBC 3.59 10^6/uL L 10^6/uL (4.18-5.33) Hgb 10.5 g/dL L g/dL (12.6-16.3) Hct 31.1 % L % (38.0-47.0) MCV 86.6 fL fL (81.5-99.8) MCH 29.2 pg pg (27.9-34.1) MCHC 33.8 g/dL g/dL (32.4-36.7) RDW 13.2 % % (11.5-15.2) Plt Count 353 10^3/uL 10^3/uL (150-400) MPV 9.2 fL fL (8.7-11.7) Neut % (Auto) 69.4 % % (39.3-74.2) Lymph % (Auto) 22.9 % % (15.0-45.0) [place] % (Auto) 6.4 % % (4.5-13.0) Eos % (Auto) 0.9 % % (0.6-7.6) Baso % (Auto) 0.3 % % (0.3-1.7) Nucleat RBC Rel Count 0.0 % % (0.0-0.2) Absolute Neuts (auto) 6.13 10^3/uL 10^3/uL (1.70-6.50) Absolute Lymphs (auto) 2.03 10^3/uL 10^3/uL (1.00-3.00) Absolute Monos (auto) 0.57 10^3/uL 10^3/uL (0.30-0.80) Absolute Eos (auto) 0.08 10^3/uL 10^3/uL (0.03-0.40) Absolute Basos (auto) 0.03 10^3/uL 10^3/uL (0.02-0.10) Absolute Nucleated RBC 0.00 10^3/uL 10^3/uL (0-0.01) Immature Gran % 0.1 % % (0.0-1.1) Immature Gran # 0.01 10^3/uL 10^3/uL (0.00-0.10) Sodium 136 mEq/L mEq/L (135-145) Potassium 3.7 mEq/L mEq/L (3.5-5.2) Chloride 99 mEq/L mEq/L (97-110) Carbon Dioxide 28 mEq/l mEq/l (22-31) Anion Gap 9 mEq/L mEq/L (6-14) BUN 12 mg/dL mg/dL (7-23) Creatinine 0.7 mg/dL mg/dL (0.6-1.0) Estimated GFR > 60 Glucose 116 mg/dL H mg/dL (70-100) Calcium 9.2 mg/dL mg/dL (8.5-10.4) Departure - Departure Disposition: [facility] Inpatient Acute Clinical Impression: Leg pain Condition: Fair Referrals: NONE *PRIMARY CARE P,. [Primary Care Provider] - As per Instructions
[2018-03-14] MEDS ORDERED: ONDANSETRON 4 MG/2 ML VIAL IVP ONE (23:10)
[2018-03-14] MEDS ORDERED: fentaNYL 100 MCG/2 ML INJ IVP ONE (23:47)
[2018-03-14] MEDS ORDERED: LORazepam 2 MG/ML INJ IVP ONE (23:48)
[2018-03-14] MEDS ORDERED: LORazepam 2 MG/ML INJ ONE (23:48)
[2018-03-15] MEDS ORDERED: ONDANSETRON DISINTEGRATING 4 MG TAB PO PRN (00:11)
[2018-03-15] MEDS ORDERED: ONDANSETRON 4 MG/2 ML VIAL IVP PRN (00:11)
[2018-03-15] MEDS ORDERED: oxyCODONE IR 5 MG TAB PO PRN (00:13)
[2018-03-15] MEDS ORDERED: HYDROmorphONE/DILAUDID 1 MG/ML INJ IVP PRN (00:14)
[2018-03-15] MEDS ORDERED: DIAZEPAM 2 MG TAB PO PRN (00:20)
[2018-03-15] MEDS ORDERED: LACTULOSE 20 GM/30 ML UDCUP PO PRN (00:28)
[2018-03-15] MEDS ORDERED: BISACODYL 10 MG SUPP PR PRN (00:28)
--- NOTE | 2018-03-15 00:38 | PDGENHP ---
History and Physical - Chief Complaint pain, muscle spasms - History of Present Illness 77 yo female with h/o spinal stenosis who recently underwent lumbar fusion of L3 -4, L4-5 returns to ED with pain and muscle spasm 1 day after hospital discharge. She notes doing well for the first few days post-op and was ambulatory. However, on the day of discharge, she developed muscle spasms in her low back, which radiate into her RLE. This occurs with any movement. She and her grew quite distressed as they were unable to control her pain with Robaxin, Gabapentin, and oxycodone. She was unable to log roll to get out of bed. Given increased pain and spasm, she returned to the ED. She denies urinary or bowel incontinence. A ponce was placed in the ED due to pain and inability to move. She received IV fentanyl, IV morphine, and IV ativan in the ED. She is much more comfortable now, but continues to have marked spasms with any movement. No fevers/chills, CP, SOB or urinary or abdominal symptoms. History Information - Allergies/Home Medication List Allergies/Adverse Reactions: hydromorphone [From Dilaudid] Allergy (Verified 03/14/18 23:07) Home Medications: Gabapentin [Neurontin 300 MG (*)] 300 mg PO QID 05/27/16 [Last Taken 03/09/18] Montelukast Sodium [Singulair 10 mg (*)] 10 mg PO HS 05/27/16 [Last Taken ] amLODIPine BESYLATE [Norvasc 2.5 mg (*)] 2.5 mg PO DAILY 05/27/16 [Last Taken ] Fluticasone Hfa 110 Mcg [Flovent 110 MCG Hfa MDI (*)] 1 puffs IH BID PRN [Last Taken 03/09/18] clonazePAM [Klonopin (*)] 0.5 mg PO HS PRN 10/16/17 [Last Taken 03/09/18] Spironolact/Hydrochlorothiazid [Spironolactone-Hctz 25-25 Tab] 1 each PO DAILY 10/23/17 [Last Taken 03/10/18] Losartan Potassium [Cozaar 50 mg (*)] 50 mg PO DAILY 11/04/17 [Last Taken ] Albuterol [Proventil Inhaler HFA (*)] 1 - 2 puffs IH Q4H PRN 02/26/18 [Last Taken 03/09/18] Allopurinol [Allopurinol 300 MG (RX)] 300 mg PO DAILY 02/26/18 [Last Taken 03/09] Calcium Carb W/Vit D [Calcium Carb W/Vit D 500/200 (*)] 1,000 mg PO DAILY [Last Taken 03/09/18] Sertraline HCl [Zoloft 50mg (*)] 50 mg PO DAILY 02/26/18 [Last Taken 03/09/18] lamoTRIgine [LamICTAL 100 MG (*)] 100 mg PO DAILY 02/26/18 [Last Taken 03/09/18] Acetaminophen [Tylenol 325mg (*)] 325 mg PO DAILY PRN 03/01/18 [Last Taken 03/09] I have personally reviewed and updated: family history, medical history, social history, surgical history - Past Medical History asthma, hypertension Additional medical history: spinal stenosis - Surgical History Additional surgical history: Lumbar fusion L3-4, L4-5 03/2018 - Family History Positive for: non-pertinent - Social History Smoking Status: Never smoked Alcohol Use: None Drug Use: None Additional social history: , at bedside Review of Systems Review of Systems: ROS: 10pt was reviewed & negative except for what was stated in HPI & below Physical Exam Physical Exam: Temp Pulse Resp BP Pulse Ox 36.8 C 94 16 146/73 H 94 03/15/18 00:14 03/15/18 00:14 03/15/18 00:14 03/15/18 00:14 03/15/18 00:14 Constitutional: no apparent distress Eyes: PERRL Ears, Nose, Mouth, Throat: moist mucous membranes Cardiovascular: regular rate and rhythym, no murmur, rub, or gallop Respiratory: no respiratory distress, clear to auscultation Gastrointestinal: normoactive bowel sounds, soft, non-tender abdomen Skin: warm Musculoskeletal: full muscle strength Neurologic: AAOx3, other (2+ DTR's b/l patella, very brisk achilles reflexes with b/l clonus noted) Psychiatric: interacting appropriately Lab Data & Imaging Review 03/14/18 22:15 03/14/18 22:15 WBC 8.85 10^3/uL (3.80-9.50) 03/14/18 22:15 RBC 3.59 10^6/uL (4.18-5.33) L 03/14/18 22:15 Hgb 10.5 g/dL (12.6-16.3) L 03/14/18 22:15 Hct 31.1 % (38.0-47.0) L 03/14/18 22:15 MCV 86.6 fL (81.5-99.8) 03/14/18 22:15 MCH 29.2 pg (27.9-34.1) 03/14/18 22:15 MCHC 33.8 g/dL (32.4-36.7) 03/14/18 22:15 RDW 13.2 % (11.5-15.2) 03/14/18 22:15 Plt Count 353 10^3/uL (150-400) 03/14/18 22:15 MPV 9.2 fL (8.7-11.7) 03/14/18 22:15 Neut % (Auto) 69.4 % (39.3-74.2) 03/14/18 22:15 Lymph % (Auto) 22.9 % (15.0-45.0) 03/14/18 22:15 [place] % (Auto) 6.4 % (4.5-13.0) 03/14/18 22:15 Eos % (Auto) 0.9 % (0.6-7.6) 03/14/18 22:15 Baso % (Auto) 0.3 % (0.3-1.7) 03/14/18 22:15 Nucleat RBC Rel Count 0.0 % (0.0-0.2) 03/14/18 22:15 Absolute Neuts (auto) 6.13 10^3/uL (1.70-6.50) 03/14/18 22:15 Absolute Lymphs (auto) 2.03 10^3/uL (1.00-3.00) 03/14/18 22:15 Absolute Monos (auto) 0.57 10^3/uL (0.30-0.80) 03/14/18 22:15 Absolute Eos (auto) 0.08 10^3/uL (0.03-0.40) 03/14/18 22:15 Absolute Basos (auto) 0.03 10^3/uL (0.02-0.10) 03/14/18 22:15 Absolute Nucleated RBC 0.00 10^3/uL (0-0.01) 03/14/18 22:15 Immature Gran % 0.1 % (0.0-1.1) 03/14/18 22:15 Immature Gran # 0.01 10^3/uL (0.00-0.10) 03/14/18 22:15 Sodium 136 mEq/L (135-145) 03/14/18 22:15 Potassium 3.7 mEq/L (3.5-5.2) 03/14/18 22:15 Chloride 99 mEq/L (97-110) 03/14/18 22:15 Carbon Dioxide 28 mEq/l (22-31) 03/14/18 22:15 Anion Gap 9 mEq/L (6-14) 03/14/18 22:15 BUN 12 mg/dL (7-23) 03/14/18 22:15 Creatinine 0.7 mg/dL (0.6-1.0) 03/14/18 22:15 Estimated GFR > 60 03/14/18 22:15 Glucose 116 mg/dL (70-100) H 03/14/18 22:15 Calcium 9.2 mg/dL (8.5-10.4) 03/14/18 22:15 Urine Color YELLOW 03/14/18 23:00 Urine Appearance CLEAR 03/14/18 23:00 Urine pH 7.0 (5.0-7.5) 03/14/18 23:00 Ur Specific [place] 1.008 (1.002-1.030) 03/14/18 23:00 Urine Protein NEGATIVE (NEGATIVE) 03/14/18 23:00 Urine Ketones NEGATIVE (NEGATIVE) 03/14/18 23:00 Urine Blood NEGATIVE (NEGATIVE) 03/14/18 23:00 Urine Nitrate NEGATIVE (NEGATIVE) 03/14/18 23:00 Urine Bilirubin NEGATIVE (NEGATIVE) 03/14/18 23:00 Urine Urobilinogen NEGATIVE EU (0.2-1.0) 03/14/18 23:00 Ur Leukocyte Esterase NEGATIVE (NEGATIVE) 03/14/18 23:00 Urine Glucose NEGATIVE (NEGATIVE) 03/14/18 23:00 Assessment & Plan Assessment: 77 yo female with h/o spinal stenosis and recent lumbar fusion returns to ED 1 day after hospital discharge with increased pain and muscle spasms Post-op pain - s/p L3-4, L4-5 fusion with increased pain and muscle spasms -schedule max dose tylenol -increase robaxin and add valium for muscle spasm, which seems to be the main problem -increase oxycodone to 15 mg q4h prn (no pain relief with 10 mg q4), prn iv dilaudid -cont gabapentin -PT/OT evals -neurosurg aware of admission Presence of ponce catheter - placed in ED. Pt does not think she can void with bedpan 2/2 pain with any movement -cont ponce overnight, try to d/c in am if mobility improved ABLA - stable since d/c Asthma - stable, no e/o exacerbation -cont home meds when med rec completed Hypertension - resume home meds in am when med rec completed DVT PPLX - Lovenox Full code Dispo - inpt, anticipate >48 hrs hospitalization for pain control and acute PT/ OT
[2018-03-15] MEDS: ACETAMINOPHEN 500 MG TAB PO SCH ×3 (01:06→15:10)
[2018-03-15] MEDS: DIAZEPAM 2 MG TAB PO PRN ×3 (01:29→15:10)
[2018-03-15] MEDS: LIDOCAINE 4%/MENTHOL 1% PATCH TD SCH ×3 (02:28→21:01)
[2018-03-15] MEDS: oxyCODONE IR 5 MG TAB PO PRN ×4 (02:44→21:03)
[2018-03-15] MEDS ORDERED: METHOCARBAMOL 500 MG TAB PO SCH (06:00)
[2018-03-15] MEDS ORDERED: GABAPENTIN 300 MG CAP PO SCH ×2 (06:00→09:00)
--- NOTE | 2018-03-15 07:56 | NEUSURGPN ---
Date of Surgery: 03/10/18 Post Op Day: 5 Assessment/Plan: Assessment: 77 yr old F s/p L3-4, L4-[address] Barba on 03/10/18, now with severe right leg pain/spasms Please see full dictated consult when available Plan: Patient with severe cramping/pain with movement in her right anterior leg Will get MRI and xrays lumbar to eval No weakness on exam Continue with pain management Ok remove dressing, leave steri strips in place Brace on when out of bed Patient discussed with Dr Barba Subjective: Right leg pain Objective: AxO x4 PERRLA AJ x4 08/08 BLE Sensation intact to light touch BLE Incision-dressing removed, steri strips in place-CDI Neuro Check Frequency: per routine Urinary Catheter in Place: Yes Urinary Catheter Indication: Other (Use Comment) (unable to ambulate) Catheter Insertion Date: 03/14/18 - Physician Discussed Patient with : Jameson Patient Seen by : Jameson Neurosurgery Physical Exam - Vitals, I&O, Labs I and O 03/14/18 03/15/18 03/16/18 05:59 05:59 05:59 Intake Total 300 Output Total 1050 Balance -750 Weight 70.307 kg Intake: Oral (ml) 300 Output: Urine (ml) 1050 Catheter 550 Other: Intake Quantity Yes Sufficient Number of Voids Catheter 1 Vital Signs Temp Pulse Resp BP Pulse Ox 37.6 C 85 18 130/71 H 93 03/15/18 07:47 03/15/18 07:47 03/15/18 07:47 03/15/18 07:47 03/15/18 07:47 ICD10 Worksheet Patient Problems: Problems Problem Status Onset Leg pain Acute Osteoarthritis of hip Acute Primary localized osteoarthritis of left hip Acute
[2018-03-15] MEDS: ENOXAPARIN 40 MG/0.4 ML SYR SC SCH (08:16)
[2018-03-15] MEDS: SENNOSIDES/DOCUSATE SODIUM TAB PO SCH ×2 (08:20→21:11)
[2018-03-15] MEDS: PATCH REMOVAL 1 EA PATCH TD SCH (08:22)
[2018-03-15] MEDS ORDERED: ZOLPIDEM TARTRATE 5 MG TAB PO PRN (08:25)
[2018-03-15] MEDS ORDERED: clonazePAM 0.5 MG TAB PO PRN (08:25)
[2018-03-15] MEDS ORDERED: FLUTICASONE HFA 110 MCG MDI IH PRN (08:25)
--- NOTE | 2018-03-15 08:31 | HOSPPROG ---
Hospitalist Progress Note Assessment/Plan: 77 yo female with h/o spinal stenosis and recent lumbar fusion returns to ED 1 day after hospital discharge with increased pain and muscle spasms. Reviewed her care w Tita rodriguez Neurosurgery, to get an MRI today. First encounter, chart reivewed. *acute back spasms w Post-op pain - s/p L3-4, L4-5 fusion -severe r leg pain w spasms -pain is much better -MRI today -Valium has helped significantly *Presence of ponce catheter - placed in ED. -explained to the patient my concern of leaving in -once more mobile, will dc *ABLA - stable since d/c *Asthma- - no e/o exacerbation -resumed home meds *Hypertension -home meds resumed *constipation -add bowel protocol *Plan: MRI today Subjective: June said pain is much improved since when she was admitted. Objective: Vital Signs Temp Pulse Resp BP Pulse Ox 37.6 C 85 18 130/71 H 93 03/15/18 07:47 03/15/18 07:47 03/15/18 07:47 03/15/18 07:47 03/15/18 07:47 03/14/18 03/15/18 03/16/18 05:59 05:59 05:59 Intake Total 300 Output Total 1050 Balance -750 - Physical Exam Constitutional: no apparent distress, appears nourished, not in pain Eyes: PERRL Ears, Nose, Mouth, Throat: hearing normal Cardiovascular: regular rate and rhythym Respiratory: no respiratory distress Gastrointestinal: normoactive bowel sounds Genitourinary: ponce in urethra Skin: warm Neurologic: AAOx3 Psychiatric: interacting appropriately ICD10 Worksheet Patient Problems: Problems Problem Status Onset Leg pain Acute Osteoarthritis of hip Acute Primary localized osteoarthritis of left hip Acute
[2018-03-15] MEDS ORDERED: ALBUTEROL 60 PUFFS/8 GM MDI IH PRN (08:45)
[2018-03-15] MEDS: LOSARTAN POTASSIUM 50 MG TAB PO SCH (08:48)
[2018-03-15] MEDS: lamoTRIgine 100 MG TAB PO SCH (08:48)
[2018-03-15] MEDS: SPIRONOLACTONE 25 MG TAB PO SCH (08:48)
[2018-03-15] MEDS: ALLOPURINOL 300 MG TAB PO SCH (08:48)
[2018-03-15] MEDS: SERTRALINE HCL 25 MG TAB PO SCH (08:48)
[2018-03-15] MEDS: HYDROCHLOROTHIAZIDE 25 MG TAB PO SCH (08:48)
[2018-03-15] MEDS: CALCIUM CARB PO SCH (08:54)
[2018-03-15] MEDS: MAGNESIUM OXID PO SCH (08:54)
[2018-03-15] MEDS: D3 PO SCH (08:54)
[2018-03-15] MEDS ORDERED: SENNOSIDES/DOCUSATE SODIUM TAB PO SCH (09:00)
[2018-03-15] MEDS ORDERED: METHOCARBAMOL 750 MG TAB PO SCH (09:00)
--- NOTE | 2018-03-15 10:37 | PDMN ---
Medical Necessity Medical necessity: [facility] PGPM Pain Management GR yo w/ recent lumbar fusion returns 1 day after hosp d/c w/ uncontrolled pain and spasms. FC placed as pt unable to move, use bedpan or amb to BR due to pain, PT/OT eval ordered, IV opioids for pain management and changes/increases to PO pain meds, neurosurg notified, additional scans ordered. Anticipate >48 hrs hospitalization for pain control and acute PT/OT.
[2018-03-15] MEDS ORDERED: GADOBUTROL 10 ML VIAL IVP ONE (12:33)
[2018-03-15] MEDS: METHOCARBAMOL 750 MG TAB PO SCH ×3 (13:21→21:02)
[2018-03-15] MEDS: GABAPENTIN 300 MG CAP PO SCH ×3 (13:23→21:04)
--- NOTE | 2018-03-15 13:52 | ASMTCMCOM ---
CM Note CM Note Notes: Pt d/c 03/13/18 from [facility] after planned spinal surgery and is now here for leg pain, back pain. Pt is open with [facility], Nadine with [facility] is aware. CM to follow. Date Signed: 03/15/2018 01:51 PM Electronically Signed By:ADOLFO Kuhn
--- NOTE | 2018-03-15 16:12 | BCON ---
INPATIENT CONSULTATION. CHIEF COMPLAINT: Right leg pain. HISTORY OF PRESENT ILLNESS: The patient is a 77-year-old female who is status post L3-4, L4-5 transforaminal lumbar interbody fusion with Dr. Barba on March 10, 2018. The patient tolerated the procedure well without complication , and was discharged home after a few days in the hospital. The patient was doing well until she began to experience severe right leg pain on March 14, 2018. The patient was unable to manage her pain at home and came to the emergency room. The patient describes her symptoms as her entire right anterior leg radiating from her hip down to her foot. Patient states the pain becomes worse with certain positions. It is intermittent and spasm like. The patient denies any weakness or any difficulties with her bowel or bladder. The patient denies any fever, chills, or difficulties with her incision. REVIEW OF SYSTEMS: A 10-point review of systems performed, negative aside from that mentioned in the HPI. ALLERGIES: Hydromorphone. HOME MEDICATIONS: Gabapentin 300 mg p.o. four times daily, Singulair 10 mg p.o. at bedtime, Norvasc 2.5 mg p.o. daily. Flovent 1 puff twice daily p.r.n., clonazepam 0.5 mg p.o. at bedtime, spironolactone hydrochlorothiazide 25/25 tab 1 p.o. daily; Cozaar 50 mg p.o. daily. Albuterol 1-2 puffs q.4 hours p.r.n., allopurinol 300 mg p.o. daily, Zoloft 50 mg p.o. daily. Lamictal 100 mg p.o. daily. Acetaminophen 325 mg p.o. daily. PAST MEDICAL HISTORY: 1. Hypertension. 2. Asthma. 3. Spinal stenosis. SURGICAL HISTORY: L3-4, L4-5 transforaminal lumbar interbody fusion by Dr. Barba on March 10, 2018. FAMILY HISTORY: Family history was reviewed and noncontributory to the present situation. SOCIAL HISTORY: Patient has never smoked cigarettes. She does not drink alcohol. She does not use illicit drugs. The patient is and her is at the bedside. DIAGNOSTICS/LABORATORY RESULTS: White blood cell count 8.85, hemoglobin 10.5, hematocrit 31.1, platelets 353. Sodium 136, potassium 3.7, BUN 12, creatinine 0.7, glucose 116. Urinalysis negative. DIAGNOSTIC IMAGING: MRI and x-rays of the lumbar spine have been ordered and are pending. EXAM: VITAL SIGNS: Blood pressure is 130/71, heart rate 85, respiratory rate 18 , oxygen saturations 92% on room air, temperature is 37.6 degrees Celsius. HEENT : Head normocephalic, atraumatic. Pupils equal, round, and reactive to light. EOMI is intact. Full visual romero by confrontation. RESPIRATORY/CARDIAC: Deferred. GENITOURINARY AND RECTAL: Deferred. NEUROLOGIC: The patient is awake and alert, oriented to name, place, time, date, and situation. Her memory is intact to immediate past current events, speech no aphasia or dysphonia. Cranial nerves 2-12 are grossly intact. Motor: Patient has 5/5 strength in all muscle groups of the upper and lower extremities to include deltoids, biceps, triceps, brachioradialis, wrist flexion, extensors, pocket grinder operator, intrinsic fingers, iliopsoas, quadriceps, hamstrings, plantar flexion, dorsiflexion, EHL testing. Sensation is grossly intact to light touch throughout all dermatomal distributions bilateral upper extremities and lower extremities. Negative straight-leg raise bilaterally. Negative LENORA test. Reflexes, brachioradialis, knee jerk and ankle jerk are 2+ out of 4. Toes are downgoing bilaterally. There is no evidence of clonus. ASSESSMENT AND PLAN: Patient is a 77-year-old female who is 5 days postop L3-4 , L4-5 transforaminal lumbar interbody fusion with Dr. Barba on March 10, 2018. The patient tolerated the procedure well without complication, and was sent home after a few days in the hospital. Patient began to experience severe right leg pain with positioning yesterday and was brought into the emergency room by her . The patient does not have any weakness and does not have any bowel or bladder incontinence at this time. Her pain is located in the right hip extending down to her foot in the anterior portion of her right leg. We will get an MRI of the lumbar spine with and without contrast as well as some AP and lateral x-rays of the lumbar spine for further evaluation. The patient was seen and examined by neurosurgical services at the bedside this morning at 0745. Please call Neurosurgery with any questions or concerns. /[id number]/MODL MRI demonstrated some accumulation of post surgical blood on the right at L45 creating recurrent stenosis there. It was not a threatening collection per se but is causing irritation of the right L5 root. I suspect that with some medical support and time the pain will resolve as the area heals from surgery. RONY
[2018-03-15] MEDS: MONTELUKAST SODIUM 10 MG TAB PO SCH (21:03)
[2018-03-15] MEDS: MAGNESIUM HYDROXIDE 30 ML UDCUP PO PRN (21:11)
[2018-03-16] MEDS: DIAZEPAM 2 MG TAB PO PRN ×2 (00:06→09:54)
[2018-03-16] MEDS: ACETAMINOPHEN 500 MG TAB PO SCH ×4 (00:07→23:39)
[2018-03-16] MEDS: oxyCODONE IR 5 MG TAB PO PRN ×5 (00:51→23:39)
[2018-03-16] MEDS: METHOCARBAMOL 750 MG TAB PO SCH (05:40)
[2018-03-16] MEDS: GABAPENTIN 300 MG CAP PO SCH ×4 (05:40→20:28)
--- NOTE | 2018-03-16 09:17 | NEUSURGPN ---
Assessment/Plan: Assessment: 77 yr old F s/p L3-4, L4-[address] Barba on 03/10/18, now with severe right leg pain/spasms Plan: -patient feels pain is slowly improving with pain medications -MRI lumbar showed small post op fluid collection, xrays lumbar stable hardware. Dr Barba viewed images and spoke with patient and last evening. Will give more time for symptoms to improve. No surgical intervention recommended at this time -Continue with pain management -PT/OT as able -Brace on when out of bed Patient discussed with Dr Barba Subjective: leg pain slightly improved with pain medications Objective: Awake and alert AJ x4 / BLE Sensation intact to light touch BLE Incision CDI with steri strips Neuro Check Frequency: per routine Urinary Catheter in Place: No Catheter Insertion Date: 03/14/18 - Physician Discussed Patient with : Jameson Patient Seen by : Jameson Neurosurgery Physical Exam - Vitals, I&O, Labs I and O 03/15/18 03/16/18 03/17/18 05:59 05:59 05:59 Intake Total 300 600 Output Total 550 2000 Balance -250 -1400 Intake: Oral (ml) 300 600 Output: Urine (ml) 550 2000 Catheter 550 2000 Other: Intake Quantity Yes Sufficient Number of Voids Catheter 1 Vital Signs Temp Pulse Resp BP Pulse Ox 36.8 C 80 13 144/75 H 96 03/16/18 08:00 03/16/18 08:00 03/16/18 08:00 03/16/18 08:00 03/16/18 08:00 ICD10 Worksheet Patient Problems: Problems Problem Status Onset Leg pain Acute Osteoarthritis of hip Acute Primary localized osteoarthritis of left hip Acute
--- NOTE | 2018-03-16 09:30 | HOSPPROG ---
Hospitalist Progress Note Assessment/Plan: 77 yo female with h/o spinal stenosis and recent lumbar fusion returns to ED 1 day after hospital discharge with increased pain and muscle spasms. *acute back spasms w Post-op pain - s/p L3-4, L4-5 fusion -MRI shows nothing acute but a small fluid collection -severe r leg pain w spasms -Valium has helped significantly -incision looks well approximated *Presence of ponce catheter - placed in ED. -explained to the patient my concern of leaving in -dc ponce today *ABLA - stable since d/c *Asthma- - no e/o exacerbation -resumed home meds *Hypertension -home meds resumed *constipation -add bowel protocol *Plan: increase Robaxin, remove ponce Subjective: June said her pain was worse during the night, but was able to get oob today. Objective: Vital Signs Temp Pulse Resp BP Pulse Ox 36.8 C 80 13 144/75 H 96 03/16/18 08:00 03/16/18 08:00 03/16/18 08:00 03/16/18 08:00 03/16/18 08:00 03/15/18 03/16/18 03/17/18 05:59 05:59 05:59 Intake Total 300 600 Output Total 550 2000 Balance -250 -1400 - Physical Exam Constitutional: uncomfortable Eyes: PERRL Ears, Nose, Mouth, Throat: hearing normal Cardiovascular: regular rate and rhythym Respiratory: no respiratory distress Gastrointestinal: normoactive bowel sounds Skin: warm, other (back incision well approximated, no redness or drainage) Musculoskeletal: generalized weakness Neurologic: AAOx3 Psychiatric: interacting appropriately, anxious ICD10 Worksheet Patient Problems: Problems Problem Status Onset Leg pain Acute Osteoarthritis of hip Acute Primary localized osteoarthritis of left hip Acute
[2018-03-16] MEDS: HYDROCHLOROTHIAZIDE 25 MG TAB PO SCH (09:47)
[2018-03-16] MEDS: lamoTRIgine 100 MG TAB PO SCH (09:48)
[2018-03-16] MEDS: ALLOPURINOL 300 MG TAB PO SCH (09:48)
[2018-03-16] MEDS: SENNOSIDES/DOCUSATE SODIUM TAB PO SCH ×2 (09:48→20:28)
[2018-03-16] MEDS: SERTRALINE HCL 25 MG TAB PO SCH (09:49)
[2018-03-16] MEDS: LOSARTAN POTASSIUM 50 MG TAB PO SCH (09:49)
[2018-03-16] MEDS: ENOXAPARIN 40 MG/0.4 ML SYR SC SCH (09:49)
[2018-03-16] MEDS: PATCH REMOVAL 1 EA PATCH TD SCH (09:52)
[2018-03-16] MEDS: POLYETHYLENE GLYCOL 3350 17 GM PKT PO PRN (09:54)
[2018-03-16] MEDS: D3 PO SCH (10:06)
[2018-03-16] MEDS: CALCIUM CARB PO SCH (10:06)
[2018-03-16] MEDS: MAGNESIUM OXID PO SCH (10:06)
[2018-03-16] MEDS: SPIRONOLACTONE 25 MG TAB PO SCH (10:07)
[2018-03-16] MEDS: METHOCARBAMOL 500 MG TAB PO SCH ×3 (11:13→20:28)
[2018-03-16] MEDS: LIDOCAINE 4%/MENTHOL 1% PATCH TD SCH (20:27)
[2018-03-16] MEDS: MONTELUKAST SODIUM 10 MG TAB PO SCH (20:28)
[2018-03-17] MEDS: oxyCODONE IR 5 MG TAB PO PRN ×2 (05:47→22:48)
[2018-03-17] MEDS: METHOCARBAMOL 500 MG TAB PO SCH ×4 (05:47→19:41)
[2018-03-17] MEDS: GABAPENTIN 300 MG CAP PO SCH ×4 (05:47→19:42)
--- NOTE | 2018-03-17 08:11 | NEUSURGPN ---
Assessment/Plan: Assessment: 77 yr old F s/p L3-4, L4-[address] Barba on 03/10/18, now with severe right leg pain/spasms Plan: -patient feels pain improving with pain medications -MRI lumbar showed small post op fluid collection, xrays lumbar stable hardware. Will give more time for symptoms to improve. No surgical intervention recommended at this time -Continue with pain management, patient states pain level has improved greatly, will continue with current regimen -PT/OT as able and eval for possible dispo later this week -Brace on when out of bed Patient was seen by Dr Barba as well Subjective: improved leg pain, sore back Objective: Awake and alert AJ x4 5/5 BLE Sensation intact to light touch BLE Incision CDI with steri strips Neuro Check Frequency: per routine Urinary Catheter in Place: No Catheter Insertion Date: 03/14/18 - Physician Discussed Patient with : Jameson Patient Seen by : Jameson Neurosurgery Physical Exam - Vitals, I&O, Labs I and O 03/16/18 03/17/18 03/18/18 05:59 05:59 05:59 Intake Total 600 800 Output Total 2000 Balance -1400 800 Intake: Oral (ml) 600 800 Output: Urine (ml) 2000 Catheter 2000 Other: Number of Voids Toilet 2 Vital Signs Temp Pulse Resp BP Pulse Ox 36.6 C 74 16 105/54 L 99 03/17/18 07:35 03/17/18 07:35 03/17/18 07:35 03/17/18 07:35 03/17/18 07:35 ICD10 Worksheet Patient Problems: Problems Problem Status Onset Leg pain Acute Osteoarthritis of hip Acute Primary localized osteoarthritis of left hip Acute
[2018-03-17] MEDS: ALLOPURINOL 300 MG TAB PO SCH (10:34)
[2018-03-17] MEDS: lamoTRIgine 100 MG TAB PO SCH (10:34)
[2018-03-17] MEDS: ACETAMINOPHEN 500 MG TAB PO SCH ×2 (10:34→17:07)
[2018-03-17] MEDS: LOSARTAN POTASSIUM 50 MG TAB PO SCH (10:35)
[2018-03-17] MEDS: SERTRALINE HCL 25 MG TAB PO SCH (10:35)
[2018-03-17] MEDS: SENNOSIDES/DOCUSATE SODIUM TAB PO SCH ×2 (10:36→21:09)
[2018-03-17] MEDS: HYDROCHLOROTHIAZIDE 25 MG TAB PO SCH (10:36)
[2018-03-17] MEDS: SPIRONOLACTONE 25 MG TAB PO SCH (10:36)
[2018-03-17] MEDS: ENOXAPARIN 40 MG/0.4 ML SYR SC SCH (10:37)
[2018-03-17] MEDS: POLYETHYLENE GLYCOL 3350 17 GM PKT PO PRN (10:39)
[2018-03-17] MEDS: MAGNESIUM HYDROXIDE 30 ML UDCUP PO PRN (10:39)
[2018-03-17] MEDS: CALCIUM CARB PO SCH (10:54)
[2018-03-17] MEDS: D3 PO SCH (10:54)
[2018-03-17] MEDS: PATCH REMOVAL 1 EA PATCH TD SCH (10:54)
[2018-03-17] MEDS: MAGNESIUM OXID PO SCH (10:54)
--- NOTE | 2018-03-17 14:40 | HOSPPROG ---
Hospitalist Progress Note Assessment/Plan: 77 yo female with h/o spinal stenosis and recent lumbar fusion returns to ED 1 day after hospital discharge with increased pain and muscle spasms. First encounter, chart reviewed. *acute back spasms w Post-op pain - s/p L3-4, L4-5 fusion -MRI shows nothing acute but a small fluid collection -severe r leg pain w spasms -Valium has helped significantly -incision looks well approximated *Presence of ponce catheter - placed in ED. -DC'd *ABLA - stable since d/c *Asthma- - no e/o exacerbation -resumed home meds *Hypertension -home meds resumed *constipation -add bowel protocol -aggressive care *Plan: -doing well -D/W pt regarding SNF -hope for DC in am if BM Subjective: Up in the chair. Feels much better. Pain controlled. Objective: Vital Signs Temp Pulse Resp BP Pulse Ox 36.8 C 101 H 16 105/54 L 94 03/17/18 11:06 03/17/18 11:06 03/17/18 11:06 03/17/18 11:06 03/17/18 11:06 03/16/18 03/17/18 03/18/18 05:59 05:59 05:59 Intake Total 600 800 680 Output Total 1999 Balance -1400 800 680 - Physical Exam Constitutional: no apparent distress, appears nourished, chronically ill appearing Eyes: PERRL, anicteric sclera, EOMI Ears, Nose, Mouth, Throat: moist mucous membranes, hearing normal, ears appear normal Cardiovascular: No JVD, No tachycardia, No edema Respiratory: no respiratory distress, no rales or rhonchi, reduced air movement Gastrointestinal: normoactive bowel sounds, No tenderness, No ascites Skin: warm, normal color, No mottled Musculoskeletal: no joint effusions, pain with ROM, generalized weakness Neurologic: AAOx3 Psychiatric: interacting appropriately, not anxious, not encephalopathic, thought process linear ICD10 Worksheet Patient Problems: Problems Problem Status Onset Leg pain Acute Primary localized osteoarthritis of left hip Acute Osteoarthritis of hip Acute
--- NOTE | 2018-03-17 15:10 | ASMTCMCOM ---
CM Note CM Note Notes: PT rec SNF today. Spoke with pt and who are amenable. Referrals sent to [facility] and [facility] in [facility] to [facility] and let CM know choice. Likely d/c tomorrow. [facility] updated. CM to follow. D/c plan of care: SNF Date Signed: 03/17/2018 03:09 PM Electronically Signed By:ADOLFO Kuhn
[2018-03-17] MEDS: LIDOCAINE 4%/MENTHOL 1% PATCH TD SCH (19:42)
[2018-03-17] MEDS: MONTELUKAST SODIUM 10 MG TAB PO SCH (19:42)
[2018-03-17] MEDS: DIAZEPAM 2 MG TAB PO PRN (21:44)
[2018-03-18] MEDS: ACETAMINOPHEN 500 MG TAB PO SCH ×2 (00:04→09:04)
[2018-03-18] MEDS: oxyCODONE IR 5 MG TAB PO PRN ×2 (04:17→09:03)
[2018-03-18] MEDS: PATCH REMOVAL 1 EA PATCH TD SCH (05:29)
[2018-03-18] MEDS: METHOCARBAMOL 500 MG TAB PO SCH (06:01)
[2018-03-18] MEDS: GABAPENTIN 300 MG CAP PO SCH (06:02)
--- NOTE | 2018-03-18 08:08 | NEUSURGPN ---
Assessment/Plan: Assessment: 77 yr old F s/p L3-4, L4-[address] Barba on 03/10/18, now with severe right leg pain/spasms Plan: -right leg pain improved, some expected lower back pain -MRI lumbar showed small post op fluid collection, xrays lumbar stable hardware. Will give more time for symptoms to improve. No surgical intervention recommended at this time -Continue with pain management -PT/OT -Ok to dispo to SNF from neurosurgery standpoint, patient will follow up as scheduled with us next week -Brace on when out of bed Patient was seen by Dr Barba as well Subjective: right leg pain improved, doing better Objective: Awake and alert AJ x4 5/5 BLE Sensation intact to light touch BLE Incision CDI with steri strips Neuro Check Frequency: per routine Urinary Catheter in Place: No Catheter Insertion Date: 03/14/18 - Physician Discussed Patient with Dr.: Barba Patient Seen by : Jameson Neurosurgery Physical Exam - Vitals, I&O, Labs I and O 03/17/18 03/18/18 03/19/18 05:59 05:59 05:59 Intake Total 800 2380 Balance 800 2380 Intake: Oral (ml) 800 2380 Other: Intake Quantity Yes Sufficient Number of Voids Toilet 2 1 Number of Stools Toilet 1 Vital Signs Temp Pulse Resp BP Pulse Ox 36.9 C 94 16 128/54 H 94 03/18/18 00:00 03/18/18 00:00 03/18/18 00:00 03/18/18 00:00 03/18/18 00:00 ICD10 Worksheet Patient Problems: Problems Problem Status Onset Leg pain Acute Osteoarthritis of hip Acute Primary localized osteoarthritis of left hip Acute
[2018-03-18 08:31] VITALS: BP 123/66
[2018-03-18] MEDS: CALCIUM CARB PO SCH (08:50)
[2018-03-18] MEDS: D3 PO SCH (08:50)
[2018-03-18] MEDS: MAGNESIUM OXID PO SCH (08:50)
[2018-03-18] MEDS: DIAZEPAM 2 MG TAB PO PRN (09:02)
[2018-03-18] MEDS: ENOXAPARIN 40 MG/0.4 ML SYR SC SCH (09:03)
[2018-03-18] MEDS: SENNOSIDES/DOCUSATE SODIUM TAB PO SCH (09:03)
[2018-03-18] MEDS: lamoTRIgine 100 MG TAB PO SCH (09:04)
[2018-03-18] MEDS: HYDROCHLOROTHIAZIDE 25 MG TAB PO SCH (09:04)
[2018-03-18] MEDS: SERTRALINE HCL 25 MG TAB PO SCH (09:04)
[2018-03-18] MEDS: SPIRONOLACTONE 25 MG TAB PO SCH (09:04)
[2018-03-18] MEDS: LOSARTAN POTASSIUM 50 MG TAB PO SCH (09:05)
[2018-03-18] MEDS: ALLOPURINOL 300 MG TAB PO SCH (09:05)
--- NOTE | 2018-03-18 09:55 | PDIAF ---
- Diagnosis Diagnosis: back fusion Code Status: Full Code - Medication Management Discharge Medications: electronically signed and located in the Home Medication List. PICC Care - Routine: N/A - Orders Services needed: Registered Nurse, Physical Therapy, Occupational Therapy Isolation Type: None Diet Recommendation: no restrictions on diet Additional Instructions: No bending or twisting Do not lift greater than 10 pounds Wear brace when out of bed Ok to shower Leave steri strips in place - Follow Up Care Current Providers and Referrals: Case Barba MD [Medical Doctor] - follow up as scheduled NONE *PRIMARY CARE P,. [Unknown] - As per Instructions
--- NOTE | 2018-03-18 11:22 | ASMTLACE ---
DEBOE Length of stay for Answers: 3 days current admission Acuity / Level of Answers: Yes Care: Did the patient have an inpatient admission? Comorbidities - select Answers: Opioid dependence all that apply / Chronic pain Other Notes: HTN; Spinal stenosis # of Emergency department Answers: 3-4 visits in the last 6 months Score: 14 Date Signed: 03/18/2018 11:22 AM Electronically Signed By:Nilsa Panchal RN
--- NOTE | 2018-03-18 11:24 | ASMTDCNOTE ---
Case Management Discharge Discharge Order Complete? Answers: Yes Patient to Obtain Answers: Other Notes: [facility] Medications Transportation Arranged Answers: Other Notes: [facility] Faxed Final Orders Answers: Yes Family Notified Answers: Yes Discharge Comments Notes: Patient discharged to [facility]. Transport arranged by Charlene at facility. BETTY [facility]field to call report. Date Signed: 03/18/2018 11:23 AM Electronically Signed By:Nilsa Panchal RN
--- NOTE | 2018-03-18 14:36 | ASDISCHSUM ---
Discharge Information Plan Status:Home with Home Health Medically Cleared to Leave: Discharge Date:03/18/2018 12:50 PM CM D/C Disposition: ADT D/C Disposition:Retirement Facility Projected Discharge Date:03/17/2018 11:00 AM Transportation at D/C: Discharge Delay Reason: Follow-Up Date:03/17/2018 11:00 AM Discharge Slot: Final Diagnosis: Placement Information Referral Type:*Home Health Care Services Referral ID:[id number] Provider Name: Address 1: Phone Number: Address 2: Fax Number: City: Selection Factors: State: Referral Type:*Skilled Nursing/SNF Referral ID:[id number] Provider Name:[facility] Address 1:[address] Address 2: City:[place] Selection Factors: State:[place] Patient Contact Information Contact Name:SOFIA Relationship: Address:[address] City:[place] Alternate Phone: State/Zip Code:[place] [address] Email: Financial Information Financial Class:Medicare Primary Plan Desc:MEDICARE INPATIENT Primary Plan Number:[id number] Secondary Plan Desc:[employer] FEDERAL PLAN Secondary Plan Number:[id number] Assessment Information LACE LACE Length of stay for Answers: 3 days current admission Acuity / Level of Answers: Yes Care: Did the patient have an inpatient admission? Comorbidities - select Answers: Opioid dependence all that apply / Chronic pain Other Notes: HTN; Spinal stenosis # of Emergency department Answers: 3-4 visits in the last 6 months Score: 14 Date Signed: 03/18/2018 11:22 AM Electronically Signed By:Nilsa Panchal RN [facility] Progress Note CM Note CM Note Notes: Pt d/c 03/13/18 from [facility] after planned spinal surgery and is now here for leg pain, back pain. Pt is open with [facility], Nadine with [facility] is aware. CM to follow. Date Signed: 03/15/2018 01:51 PM Electronically Signed By:ADOLFO Kuhn [facility] CM Progress Note CM Note CM Note Notes: PT rec SNF today. Spoke with pt and who are amenable. Referrals sent to [facility] and [facility] in [facility] to tour and let CM know choice. Likely d/c tomorrow. [facility] updated. CM to follow. D/c plan of care: SNF Date Signed: 03/17/2018 03:09 PM Electronically Signed By:ADOLFO Kuhn Case Management Discharge Plan Note Case Management Discharge Discharge Order Complete? Answers: Yes Patient to Obtain Answers: Other Notes: [facility] Medications Transportation Arranged Answers: Other Notes: [facility] Faxed Final Orders Answers: Yes Family Notified Answers: Yes Discharge Comments Notes: Patient discharged to [facility]. Transport arranged by Charlene at facility. BETTY [facility]field to call report. Date Signed: 03/18/2018 11:23 AM Electronically Signed By:Nilsa Panchal, RN Intervention Information Intervention Type:*Incorrect Registration Date of Service:03/15/2018 09:10 AM Patient Type:Observation Staff Member:Unique Cage Hours: Discipline: Severity: Comment: Intervention Type:*IM-Signed Date of Service:03/18/2018 10:29 AM Patient Type:Inpatient Staff Member:Ramona Joseph Hours: Discipline: Severity: Comment:
--- NOTE | 2018-03-18 15:44 | GDS ---
DISCHARGE DIAGNOSES: 1. Acute back spasm. 2. Acute blood loss anemia. 3. Asthma. 4. Hypertension. 5. Constipation. CONSULTATIONS: Neurosurgery. STUDIES AND PROCEDURES DONE: 1. MRI of the lumbar spine. 2. Lumbar spine x-ray. PHYSICAL EXAM: GENERAL: The patient is alert. VITAL SIGNS: Afebrile at 36.8. Pulse is 86. Respi ratory rate is 16. Blood pressure is 123/66. She is saturating greater than 90% on room air. I have seen and evaluated the patient on the day of discharge. HOSPITAL COURSE: Patient is a 77-year-old female who presented to the hospital with increasing pain. She was evaluated and diagnosed with: 1. Acute back spasm in the postoperative setting. During this hospitalization, she received a consu ltation from Neurosurgery. MRI was performed, with supportive management being done. The patient's pain is significantly improved. 2. Acute blood loss anemia. This is stable, with no intervention warranted. 3. Asthma. She has no exacerbations at this time. 4. Hypertension. Her home meds have been resumed. 5. Constipation. The patient has resolved this issue with aggressive bowel therapy. DISPOSITION: [facility] for further [facility], medica l management, and strengthening. There are no pending studies. DISCHARGE MEDICATIONS: Please refer to EMR form. New medications include Lovenox, Valium, Lidoderm patch. I have not discontinued any of her home medications. FOLLOWUP: Followup will be with her primary care physician, as well as Dr. Stewart Barba of Neurosurger y. I spent greater than 35 minutes in the care, coordination, and management of this patient's dispositi on. /[id number]/MODL
== END 2018-03-18 12:50 | DRG 552 ==
LOC: EDUNIT# → F3N 23:56 → OBSVTOIN 03-15 00:15
PROVIDERS: ADMIT Hospitalist; ATTEND Hospitalist
DX: M62.830 Muscle spasm of back (principal); D62 Acute posthemorrhagic anemia; G89.18 Other acute postprocedural pain; I10 Essential (primary) hypertension; G47.33 Obstructive sleep apnea (adult) (pediatric); J45.909 Unspecified asthma, uncomplicated; K59.00 Constipation, unspecified; Z96.641 Presence of right artificial hip joint; Z98.1 Arthrodesis status
CPT/HCPCS: 96374; 97116-GP; 97162-GP; 97165-GO; 97530-GO; 97530-GP; 97535-GO; A9585; G8978-GP-CJ; G8979-GP-CI; G8987-GO-CL; G8988-GO-CJ; G8989-GO-CJ; J1170; J1650; J2060; J2270; J2405

== ENCOUNTER → 2018-05-07 | Outpatient (CLI) | payer OTHER, BC | LOC: FIMAGING 16:11 | PROVIDERS: ATTEND Nurse Practitioner | DX: M54.16 Radiculopathy, lumbar region (principal); Z98.1 Arthrodesis status ==

== ENCOUNTER → 2018-06-08 | Outpatient (CLI) | payer OTHER, BC | LOC: FIMAGING 18:39 | PROVIDERS: ATTEND Orthopaedic Surgery Hand Surgery | DX: M19.031 Primary osteoarthritis, right wrist (principal); S63.591A Other specified sprain of right wrist, initial encounter; S63.511A Sprain of carpal joint of right wrist, initial encounter ==

== ENCOUNTER → 2018-09-09 | Outpatient (CLI) | payer OTHER, BC | LOC: FIMAGING 11:45 ==